=== PATIENT | female | born 1940 | race Caucasian/White ===

== ENCOUNTER 2019-09-30 04:10 | Inpatient (IN) | payer MEDICARE, OTHER ==
[2019-09-30] VITALS (17 sets, daily range): BP systolic 90–166; BP diastolic 41–78
[~2019-09-30] VITALS: Ht 165.1 cm; Wt 62.4 kg
[2019-09-30] MEDS ORDERED: dexamethasone sod phosphate 10mg/ml inj IV STA (04:13)
[2019-09-30] MEDS ORDERED: albuterol 2.5 MG/3 ML nebule CONTNEB PRN (04:15)
[2019-09-30] MEDS ORDERED: etomidate 2mg/ml inj. IV ONE (04:30)
[2019-09-30] MEDS ORDERED: rocuronium 10mg/ml inj IV ONE ×2 (04:30→08:00)
[2019-09-30] MEDS ORDERED: FENTANYL-0.9 % NACL/PF 100 ML IV PRN ×2 (04:33→05:51)
[2019-09-30] MEDS ORDERED: midazolam 100mg in NS 100ml 100 ML IV PRN ×2 (04:33→05:51)
[2019-09-30 05:20] LABS: ABG BASE EXCESS -7.6 mmol/L (-2.0-3.0); ABG HCO3 19.9 mmol/L (22.0-26.0); ABG OXYGEN SATURATION 98.5 % (95-98); ABG PH (T) 7.247 (7.350-7.450); ABG PO2 (T) 151.1 mmHg (83-108); FCOHb 0.6 % (0.5-1.5); FMetHb 0.2 % (0.3-1.12); FO2Hb 97.7 % (94-100); MINUTE VOLUME 6 L/min; PATIENT TEMPERATURE 35.7; PEEP 5 cm H2O; RESPIRATORY RATE 14 b/min; RESPIRATORY RATE (OBSERVED) 14 b/min; TIDAL VOLUME 400 mL; TOTAL HEMOGLOBIN 12.1 G/dl (12.0-16.0)
[2019-09-30 05:20] LABS: OXYGEN SATURATION (MIXED VEN) 84.8 % (60-80); PO2 MIXED VENOUS (TEMP COR) 52.4 mmHg (35-46)
[2019-09-30 05:22] LABS: BASOPHILS # (AUTO) 0.1 X10'3 (0-0.2); BASOPHILS % (AUTO) 0.8 % (0-1); EOSINOPHILS % (AUTO) 0.3 % (0-6); HEMATOCRIT 35.6 % (35.0-45.0); HEMOGLOBIN 11.4 g/dl (12.0-16.0); LYMPHOCYTES # (AUTO) 0.8 X10'3 (1.1-4.8); LYMPHOCYTES % (AUTO) 5.6 % (21-51); MEAN CORPUSCULAR HEMOGLOBIN 32.6 PG (27.0-31.0); MEAN CORPUSCULAR VOLUME 101.8 FL (78-98); MONOCYTES # (AUTO) 0.4 X10'3 (0-0.9); MONOCYTES % (AUTO) 2.9 % (2-12); NEUTROPHILS # (AUTO) 12.9 X10'3 (1.8-7.7); NEUTROPHILS % (AUTO) 90.4 % (42-75); PLATELET COUNT 193 X10'3 (140-440); RED CELL DISTRIBUTION WIDTH 20.3 % (11.5-14.5); WHITE BLOOD COUNT 14.2 X10'3 (4.5-11.0)
[2019-09-30] MEDS ORDERED: ATRIN INH ×2 (05:24)
[2019-09-30] MEDS ORDERED: LISI-600 PO (05:24)
[2019-09-30] MEDS ORDERED: LEVO200T8 PO (05:24)
[2019-09-30] MEDS ORDERED: LORA10TA65 PO (05:24)
[2019-09-30] MEDS ORDERED: OMEP40CA13 PO (05:24)
[2019-09-30] MEDS ORDERED: AMIO200T61 PO (05:24)
[2019-09-30] MEDS ORDERED: DOXE3TAB3 PO (05:24)
[2019-09-30] MEDS ORDERED: FLUT1AER INH (05:24)
[2019-09-30] MEDS ORDERED: ATOR20TA PO (05:24)
[2019-09-30] MEDS ORDERED: COU1T PO (05:24)
--- NOTE | 2019-09-30 05:25 | NUR ---
med list found in pts belongings - entered meds as written on list. some did not include dose or frequency
[2019-09-30 05:34] LABS: PARTIAL THROMBOPLASTIN TIME 28 SECONDS (22-32)
[2019-09-30 05:37] LABS: ALANINE AMINOTRANSFERASE 26 U/L (12-78); ALBUMIN 2.8 G/DL (3.4-5.0); ALBUMIN/GLOBULIN RATIO 1.1 (1.1-1.5); ALKALINE PHOSPHATASE 62 IU/L (46-116); ANION GAP 9 (8-16); ASPARTATE AMINO TRANSFERASE 30 U/L (10-37); BILIRUBIN,TOTAL 0.5 MG/DL (0.1-1.0); BLOOD UREA NITROGEN 57 MG/DL (7-18); BUN/CREATININE RATIO 8.4 (6.6-38.0); CALCIUM 8.1 MG/DL (8.5-10.1); CHLORIDE 106 MMOL/L (99-107); CREATININE 6.76 MG/DL (0.40-0.90); GLUCOSE 200 MG/DL (70-104); POTASSIUM 5.5 MMOL/L (3.5-5.1); SODIUM 140 MMOL/L (135-145); TOTAL CARBON DIOXIDE 25.2 MMOL/L (24-32); TOTAL PROTEIN 5.4 G/DL (6.4-8.2); eGFR 6 ML/MIN
[2019-09-30] MEDS ORDERED: glucagon, human recombinant 1mg kit SUBCUT PRN (05:55)
[2019-09-30] MEDS ORDERED: ondansetron/PF 4mg/2ml inj IV PRN (05:55)
[2019-09-30] MEDS ORDERED: methylPREDNISolone sod succ 125mg/2ml vial IV ONE (05:55)
[2019-09-30] MEDS ORDERED: MESSAGE TO PHARMACY PO ONE (05:55)
[2019-09-30] MEDS ORDERED: acetaminophen 650mg rectal suppository RC PRN (05:55)
[2019-09-30] MEDS ORDERED: insulin Lispro (HumaLOG) vial - multi-dose SQ SCH (05:55)
[2019-09-30] MEDS ORDERED: dextrose 50%-water 50ml dispensing syringe IV PRN ×2 (05:55)
[2019-09-30] MEDS ORDERED: acetaminophen 325mg tablet PO PRN ×2 (05:55)
[2019-09-30] MEDS ORDERED: dextrose ORAL solution 15 GM/59 ML bottle PO PRN ×2 (05:55)
[2019-09-30] MEDS ORDERED: albuterol 2.5 MG/3 ML nebule NEB PRN (05:55)
[2019-09-30 06:01] LABS: TOTAL CELLS COUNTED 100
[2019-09-30 06:02] LABS: ANISOCYTOSIS 3+; PLATELET ESTIMATE NORMAL; POIKILOCYTOSIS FEW; POLYCHROMASIA FEW
[2019-09-30] MEDS ORDERED: CefTRIAXone 2gm/D5W 50ml 50 ML IV ONE (06:05)
[2019-09-30] MEDS ORDERED: azithromycin/NS 500mg/250ml 250 ML IV ONE (06:05)
--- NOTE | 2019-09-30 06:20 | NUR ---
PATIENT RECEIVED ON BED VERSED MG/HR,FENTANYL 25MCG/HR.ON BEAR HUGGER TEMP SHARMA 95.7,FI02 40% RATE 16 PEEP 5.AWAITING ROOM ASIGNMENT.
--- NOTE | 2019-09-30 07:06 | NUR ---
Pt 8.0 tube was found at 22 cm. Previously charted at 24 cm
--- NOTE | 2019-09-30 07:07 | NUR ---
Pt 8.0 tube found at 22 cm. Previosul
--- NOTE | 2019-09-30 07:08 | NUR ---
Pt 8.0 tube found at 22 cm. Previously charted 24 cm at the teeth. No documentation for changes in tube placement. Addendum: 09/30/19 at 0709 by Luana Oviedo RT Amended: Links added.
[2019-09-30] MEDS: ipratropium/albuterol 3ml nebule NEB SCH ×4 (07:34→20:49)
[2019-09-30] MEDS: lisinopril 20mg tablet PO SCH (08:00)
[2019-09-30] MEDS: amiodarone 200mg tablet PO SCH ×2 (08:00→12:39)
[2019-09-30] MEDS ORDERED: sod chloride 0.9% 10ml flush syringe IV ONE (08:00)
[2019-09-30] MEDS ORDERED: epiNEPHrine 0.1mg/ml 10ml syringe ONE (08:00)
[2019-09-30] MEDS ORDERED: etomidate 2mg/ml inj. ONE (08:00)
[2019-09-30] MEDS: docusate sodium 100mg/10ml UD cup PO SCH ×2 (08:00→20:00)
[2019-09-30] MEDS: levoTHYROXINE 100mcg tablet PO SCH (08:00)
[2019-09-30] MEDS: pantoprazole 40 MG vial IV SCH (09:02)
[2019-09-30] MEDS ORDERED: heparin 1,000unit/ml 10ml vial 10 ML IV ONE (09:20)
[2019-09-30] MEDS ORDERED: normal saline 1000ml 250 ML IV PRN (09:20)
[2019-09-30] MEDS ORDERED: heparin 1,000 units/ml 10ml inj HE ONE ×2 (09:25)
--- NOTE | 2019-09-30 09:28 | NUR ---
Spoke with lab regarding ordered cultures. They state that they have received the UA, sputum, and one set of the blood cultures, and they said they would send someone up to get the other set
--- NOTE | 2019-09-30 11:52 | NUR ---
Initial: Pt intubated admit w/ fluid overload, COPD exacerbation, possible PNA, hx ESRD on HD. MAP 66 today. Per RN potentially pending extubation today. TF recs below in case prolonged intubation given needs on HD. Will continue to monitor. Rec: 1. IF TF; Vital AF @ 60ml/hr goal 2. advance diet upon extubation to renal per MD 3. wt per rx Addendum: 09/30/19 at [address] Amended: Links added.
--- NOTE | 2019-09-30 12:28 | NUR ---
Malnutrition consult: Pt has mild weakness, current bed scale wt 63kg w/ no prior admits, BLE +2 pitting edema. Pt also admit w/ fluid overload and hx ESRD on HD currently receiving HD. Pt has no visible signs of muscle/fat wasting on RD visit. At this time pt does not met minimum malnutrition criteria. Addendum: 09/30/19 at [address] Amended: Links added.
[2019-09-30] MEDS ORDERED: BENZ-49 PO (13:32)
[2019-09-30] MEDS: methylPREDNISolone sod succ 125mg/2ml vial IV SCH ×2 (15:30→20:21)
[2019-09-30] MEDS ORDERED: ipratropium/albuterol 3ml nebule NEB PRN (15:45)
[2019-09-30] MEDS ORDERED: racepinephrine 11.25mg/0.5ml nebule NEB PRN (15:45)
--- NOTE | 2019-09-30 17:50 | NUR ---
notified MD of hypotension. No new orders
--- NOTE | 2019-09-30 18:40 | NUR ---
Patient in room ICU 2040. I have received report from Neptali BELL, and had the opportunity to ask questions and assume patient care.
[2019-09-30] MEDS ORDERED: warfarin 1mg tablet PO ONE (21:00)
[2019-09-30] MEDS: insulin glargine (Lantus) pen - multi-dose SQ SCH (21:00)
[2019-09-30] MEDS: atorvastatin 20mg tablet PO SCH (21:25)
--- NOTE | 2019-09-30 22:45 | NUR ---
PT sleeping with no s/s of distress noted at this time. Bed is locked and low. Bilat soft wrist restraints in place and secure. Will continue to monitor. Addendum: 10/01/19 at 0600 by Gary Gray RN Restraints are not in place. Call light is within reach. Will continue to monitor.
[2019-10-01] VITALS (18 sets, daily range): BP systolic 106–142; BP diastolic 48–79
[2019-10-01] MEDS: methylPREDNISolone sod succ 125mg/2ml vial IV SCH ×2 (02:09→07:52)
--- NOTE | 2019-10-01 02:30 | NUR ---
PT resting with no s/s of distress noted at this time. Bed is locked and low. Call light is within reach. Will continue to monitor.
[2019-10-01 02:57] LABS: PARTIAL THROMBOPLASTIN TIME 28 SECONDS (22-32)
[2019-10-01 03:01] LABS: ALANINE AMINOTRANSFERASE 38 U/L (12-78); ALBUMIN 2.8 G/DL (3.4-5.0); ALBUMIN/GLOBULIN RATIO 1.1 (1.1-1.5); ALKALINE PHOSPHATASE 55 IU/L (46-116); ANION GAP 7 (8-16); ASPARTATE AMINO TRANSFERASE 24 U/L (10-37); BILIRUBIN,TOTAL 0.5 MG/DL (0.1-1.0); BLOOD UREA NITROGEN 26 MG/DL (7-18); BUN/CREATININE RATIO 6.9 (6.6-38.0); CALCIUM 8.2 MG/DL (8.5-10.1); CHLORIDE 103 MMOL/L (99-107); CREATININE 3.76 MG/DL (0.40-0.90); GLUCOSE 161 MG/DL (70-104); MAGNESIUM 1.9 MG/DL (1.5-2.4); PHOSPHORUS 3.2 MG/DL (2.3-4.5); POTASSIUM 4.6 MMOL/L (3.5-5.1); SODIUM 139 MMOL/L (135-145); TOTAL CARBON DIOXIDE 28.9 MMOL/L (24-32); TOTAL PROTEIN 5.3 G/DL (6.4-8.2); eGFR 12 ML/MIN
[2019-10-01 03:02] LABS: BASOPHILS % (AUTO) 0.3 % (0-1); EOSINOPHILS % (AUTO) 0 % (0-6); HEMATOCRIT 31.4 % (35.0-45.0); HEMOGLOBIN 10.5 g/dl (12.0-16.0); LYMPHOCYTES # (AUTO) 0.1 X10'3 (1.1-4.8); LYMPHOCYTES % (AUTO) 1.3 % (21-51); MEAN CORPUSCULAR HEMOGLOBIN 33.4 PG (27.0-31.0); MEAN CORPUSCULAR HGB CONC 33.3 g/dL (33.0-36.5); MEAN CORPUSCULAR VOLUME 100.3 FL (78-98); MEAN PLATELET VOLUME 7.8 FL (7.4-10.4); MONOCYTES # (AUTO) 0.2 X10'3 (0-0.9); MONOCYTES % (AUTO) 1.4 % (2-12); NEUTROPHILS # (AUTO) 10.5 X10'3 (1.8-7.7); PLATELET COUNT 169 X10'3 (140-440); RED BLOOD COUNT 3.13 X10'6 (4.20-5.60); RED CELL DISTRIBUTION WIDTH 19.7 % (11.5-14.5); WHITE BLOOD COUNT 10.8 X10'3 (4.5-11.0)
[2019-10-01] MEDS: ipratropium/albuterol 3ml nebule NEB SCH ×4 (03:09→21:57)
[2019-10-01 06:26] LABS: ANISOCYTOSIS 2+; PLATELET ESTIMATE NORMAL; POLYCHROMASIA FEW
[2019-10-01 06:27] LABS: SCHISTOCYTES FEW; TEAR DROP CELLS FEW
--- NOTE | 2019-10-01 06:36 | NUR ---
Problems reprioritized. Patient report given, questions answered & plan of care reviewed with Neptali BELL.
[2019-10-01] MEDS: levoTHYROXINE 100mcg tablet PO SCH (07:46)
[2019-10-01] MEDS: lisinopril 20mg tablet PO SCH (07:50)
[2019-10-01] MEDS: CefTRIAXone 2gm/D5W 50ml 50 ML IV SCH (07:51)
[2019-10-01] MEDS: pantoprazole 40 MG vial IV SCH (07:52)
[2019-10-01] MEDS ORDERED: mineral oil/petrolatum ophthal oint EACHEYE SCH (08:00)
[2019-10-01] MEDS: amiodarone 200mg tablet PO SCH (08:36)
[2019-10-01] MEDS: docusate sodium 100mg/10ml UD cup PO SCH ×2 (08:37→20:38)
[2019-10-01] MEDS: azithromycin/NS 500mg/250ml 250 ML IV SCH (09:20)
--- NOTE | 2019-10-01 12:42 | NUR ---
Patient in room ICU 2040. I have received report from ARABELLA ARMIJO and had the opportunity to ask questions and assume patient care.
[2019-10-01] MEDS: methylPREDNISolone sod succ/PF 40mg inj. IV SCH ×2 (13:55→20:33)
--- NOTE | 2019-10-01 13:58 | NUR ---
hayley sent home with daughter yesterday with patients permission.
--- NOTE | 2019-10-01 14:30 | NUR ---
received pt into room 313,assumed care,oriented to environment,pt calm,relaxed,denies pain
--- NOTE | 2019-10-01 18:38 | NUR ---
Problems reprioritized. Patient report given, questions answered & plan of care reviewed with tristan flores.
[2019-10-01] MEDS: lactobacillus rhamnosus 10,000 MMU CELLS/CAPSULE PO SCH (20:37)
[2019-10-01] MEDS: atorvastatin 20mg tablet PO SCH (20:38)
[2019-10-01] MEDS ORDERED: warfarin 5mg tablet PO ONE (21:00)
[2019-10-01] MEDS: insulin glargine (Lantus) pen - multi-dose SQ SCH (21:00)
[2019-10-01] MEDS ORDERED: benzonatate 100mg capsule PO PRN (23:40)
[2019-10-02] MEDS ORDERED: diphenhydrAMINE 25mg capsule PO PRN
[2019-10-02] MEDS: methylPREDNISolone sod succ/PF 40mg inj. IV SCH ×2 (02:16→07:49)
[2019-10-02 02:57] LABS: BASOPHILS # (AUTO) 0.1 X10'3 (0-0.2); BASOPHILS % (AUTO) 0.4 % (0-1); EOSINOPHILS % (AUTO) 0 % (0-6); HEMATOCRIT 30.4 % (35.0-45.0); HEMOGLOBIN 9.9 g/dl (12.0-16.0); LYMPHOCYTES # (AUTO) 0.1 X10'3 (1.1-4.8); LYMPHOCYTES % (AUTO) 0.9 % (21-51); MEAN CORPUSCULAR HEMOGLOBIN 32.9 PG (27.0-31.0); MEAN CORPUSCULAR HGB CONC 32.6 g/dL (33.0-36.5); MEAN CORPUSCULAR VOLUME 101.1 FL (78-98); MEAN PLATELET VOLUME 8.2 FL (7.4-10.4); MONOCYTES # (AUTO) 0.4 X10'3 (0-0.9); MONOCYTES % (AUTO) 2.2 % (2-12); NEUTROPHILS # (AUTO) 15.4 X10'3 (1.8-7.7); NEUTROPHILS % (AUTO) 96.5 % (42-75); PLATELET COUNT 173 X10'3 (140-440); RED BLOOD COUNT 3.01 X10'6 (4.20-5.60); RED CELL DISTRIBUTION WIDTH 19.9 % (11.5-14.5); WHITE BLOOD COUNT 15.9 X10'3 (4.5-11.0)
[2019-10-02 03:03] LABS: ALANINE AMINOTRANSFERASE 31 U/L (12-78); ALBUMIN 2.8 G/DL (3.4-5.0); ALBUMIN/GLOBULIN RATIO 1.1 (1.1-1.5); ALKALINE PHOSPHATASE 55 IU/L (46-116); ANION GAP 7 (8-16); ASPARTATE AMINO TRANSFERASE 18 U/L (10-37); BILIRUBIN,TOTAL 0.3 MG/DL (0.1-1.0); BLOOD UREA NITROGEN 47 MG/DL (7-18); BUN/CREATININE RATIO 8.7 (6.6-38.0); CHLORIDE 101 MMOL/L (99-107); GLUCOSE 140 MG/DL (70-104); PHOSPHORUS 4.8 MG/DL (2.3-4.5); POTASSIUM 4.5 MMOL/L (3.5-5.1); SODIUM 136 MMOL/L (135-145); TOTAL CARBON DIOXIDE 27.6 MMOL/L (24-32); TOTAL PROTEIN 5.4 G/DL (6.4-8.2); eGFR 8 ML/MIN
[2019-10-02] MEDS: ipratropium/albuterol 3ml nebule NEB SCH ×4 (04:16→21:20)
[2019-10-02 04:38] VITALS: BP 129/64
[2019-10-02 04:43] LABS: ANISOCYTOSIS 2+; PLATELET ESTIMATE NORMAL
[2019-10-02] MEDS ORDERED: lactulose 20gm/30ml cup PO PRN (05:55)
--- NOTE | 2019-10-02 05:59 | NUR ---
Problems reprioritized. Patient report given, questions answered & plan of care reviewed with Angélica BELL.
[2019-10-02 06:30] VITALS: BP 155/54
[2019-10-02] MEDS: amiodarone 200mg tablet PO SCH (07:48)
[2019-10-02] MEDS: lisinopril 20mg tablet PO SCH (07:48)
[2019-10-02] MEDS: levoTHYROXINE 100mcg tablet PO SCH (07:48)
[2019-10-02] MEDS: lactobacillus rhamnosus 10,000 MMU CELLS/CAPSULE PO SCH ×2 (07:49→20:04)
[2019-10-02] MEDS: docusate sodium 100mg/10ml UD cup PO SCH ×2 (07:49→20:00)
[2019-10-02] MEDS: CefTRIAXone 2gm/D5W 50ml 50 ML IV SCH (07:50)
[2019-10-02] MEDS ORDERED: potassium Cl 20 mEq SR tablet PO PRN ×2 (08:05)
[2019-10-02] MEDS ORDERED: potassium CL 10mEq/100ml bag 100 ML IV PRN ×2 (08:05)
[2019-10-02] MEDS: azithromycin/NS 500mg/250ml 250 ML IV SCH (08:52)
--- NOTE | 2019-10-02 09:58 | NUR ---
Dr. Pierre at bedside, states make sure she does P.T. Plan for 1-2 days for discharge.
--- NOTE | 2019-10-02 10:18 | NUR ---
reassessment: Pt extubated advanced to renal/mechanical soft diet PO increasing to 100% breakfast this AM up from 50% fluctuating average initially following extubation. LBM 09/28 w/ colace started receiving past 1 day so far. Will monitor for additional protein needs on HD pending further PO diet hx s/p recent extubation. Rec: 1. Continue renal/mechanical soft diet per MD 2. monitor for ONS needs pending further PO hx 3. wt per rx Addendum: 10/02/19 at [address] Amended: Links added.
[2019-10-02 11:00] VITALS: BP 145/73
[2019-10-02 15:00] VITALS: BP 131/70
[2019-10-02 15:19] LABS: HBSAG SCREEN Negative (Negative)
[2019-10-02 18:00] VITALS: BP 127/68
--- NOTE | 2019-10-02 18:35 | NUR ---
Problems reprioritized. Patient report given, questions answered & plan of care reviewed with Nidia BELL.
[2019-10-02] MEDS: atorvastatin 20mg tablet PO SCH (20:06)
[2019-10-02] MEDS ORDERED: warfarin 3mg tablet PO ONE (21:00)
[2019-10-02 22:00] VITALS: BP 157/52
[2019-10-03 02:00] VITALS: BP 124/61
[2019-10-03] MEDS: ipratropium/albuterol 3ml nebule NEB SCH ×3 (02:51→20:27)
[2019-10-03 03:05] LABS: BASOPHILS % (AUTO) 0.1 % (0-1); EOSINOPHILS % (AUTO) 0 % (0-6); HEMATOCRIT 31.5 % (35.0-45.0); HEMOGLOBIN 10.2 g/dl (12.0-16.0); LYMPHOCYTES # (AUTO) 0.3 X10'3 (1.1-4.8); LYMPHOCYTES % (AUTO) 2.5 % (21-51); MEAN CORPUSCULAR HEMOGLOBIN 32.8 PG (27.0-31.0); MEAN CORPUSCULAR HGB CONC 32.4 g/dL (33.0-36.5); MEAN CORPUSCULAR VOLUME 101.1 FL (78-98); MEAN PLATELET VOLUME 8.2 FL (7.4-10.4); MONOCYTES # (AUTO) 0.7 X10'3 (0-0.9); NEUTROPHILS # (AUTO) 12.1 X10'3 (1.8-7.7); NEUTROPHILS % (AUTO) 92.4 % (42-75); PLATELET COUNT 163 X10'3 (140-440); RED BLOOD COUNT 3.11 X10'6 (4.20-5.60); RED CELL DISTRIBUTION WIDTH 19.4 % (11.5-14.5); WHITE BLOOD COUNT 13.1 X10'3 (4.5-11.0)
[2019-10-03 03:08] LABS: ALANINE AMINOTRANSFERASE 27 U/L (12-78); ALBUMIN 2.9 G/DL (3.4-5.0); ALBUMIN/GLOBULIN RATIO 1.2 (1.1-1.5); ALKALINE PHOSPHATASE 57 IU/L (46-116); ANION GAP 11 (8-16); ASPARTATE AMINO TRANSFERASE 13 U/L (10-37); BILIRUBIN,TOTAL 0.4 MG/DL (0.1-1.0); BLOOD UREA NITROGEN 68 MG/DL (7-18); BUN/CREATININE RATIO 9.9 (6.6-38.0); CALCIUM 7.9 MG/DL (8.5-10.1); CHLORIDE 100 MMOL/L (99-107); CREATININE 6.87 MG/DL (0.40-0.90); GLUCOSE 103 MG/DL (70-104); PHOSPHORUS 5.7 MG/DL (2.3-4.5); POTASSIUM 4.7 MMOL/L (3.5-5.1); SODIUM 137 MMOL/L (135-145); TOTAL CARBON DIOXIDE 26.3 MMOL/L (24-32); TOTAL PROTEIN 5.4 G/DL (6.4-8.2); eGFR 6 ML/MIN
[2019-10-03 06:00] VITALS: BP 138/72
--- NOTE | 2019-10-03 06:05 | NUR ---
Patient in room MED 313. I have received report from ARABELLA Jacob and had the opportunity to ask questions and assume patient care.
[2019-10-03 07:50] LABS: ANISOCYTOSIS 2+; PLATELET ESTIMATE NORMAL
[2019-10-03 07:51] LABS: SPHEROCYTES FEW
[2019-10-03] MEDS ORDERED: heparin 1,000unit/ml 10ml vial 10 ML IV ONE (08:00)
[2019-10-03] MEDS ORDERED: normal saline 1000ml 250 ML IV PRN (08:00)
[2019-10-03] MEDS ORDERED: K and/or MAG REPLACEMENT MC SCH (08:00)
[2019-10-03] MEDS ORDERED: epoetin 20,000 units/ml inj IV ONE (08:00)
[2019-10-03] MEDS: docusate sodium 100mg/10ml UD cup PO SCH ×2 (08:00→21:23)
[2019-10-03] MEDS ORDERED: heparin 1,000 units/ml 10ml inj HE ONE ×2 (08:00)
[2019-10-03] MEDS: amiodarone 200mg tablet PO SCH (08:14)
[2019-10-03] MEDS: levoTHYROXINE 100mcg tablet PO SCH (08:14)
[2019-10-03] MEDS: prednisone 10mg tablet PO SCH (08:14)
[2019-10-03] MEDS: lactobacillus rhamnosus 10,000 MMU CELLS/CAPSULE PO SCH ×2 (08:14→21:23)
[2019-10-03] MEDS: CefTRIAXone 2gm/D5W 50ml 50 ML IV SCH (08:14)
[2019-10-03] MEDS: azithromycin 250mg tablet PO SCH (08:15)
[2019-10-03] MEDS: lisinopril 20mg tablet PO SCH (08:15)
[2019-10-03 11:00] VITALS: BP 159/90
--- NOTE | 2019-10-03 13:00 | NUR ---
Patients daughter has requested to talk with case management in regards to rehab placement. Paged Case Management and called Ena to relay this information. Patient is dangling on the side of the bed enjoying her lunch at this time. Will continue to monitor the patient.
[2019-10-03] MEDS ORDERED: WARF4TAB69 PO (14:25)
[2019-10-03] MEDS ORDERED: WARF3TAB56 PO (14:25)
[2019-10-03 15:00] VITALS: BP 167/88
--- NOTE | 2019-10-03 15:10 | NUR ---
Orientee documentation: I have reviewed and agree with all interventions, assessments performed and documented by Brittni BELL. Orientee Medication Administration: For this medication-pass time frame, all medication were reviewed, dispensed, administered and documented per hospital policy by Brittni BELL.
--- NOTE | 2019-10-03 15:22 | NUR ---
Dialysis nurse at bedside.
--- NOTE | 2019-10-03 17:45 | NUR ---
Left voicemail for Dr. Pierre: Requested that he call back regarding pt's elevated blood pressure.
[2019-10-03 18:00] VITALS: BP 182/106
--- NOTE | 2019-10-03 18:10 | NUR ---
received report from ARABELLA villalobos
--- NOTE | 2019-10-03 18:28 | NUR ---
Problems reprioritized. Patient report given, questions answered & plan of care reviewed with ARABELLA Luis.
--- NOTE | 2019-10-03 18:32 | NUR ---
Contacted Dr. Pierre re: elevated BP, states he wants NO blood pressure medications given for 186/107 r/t patient's fragile status. Orders for us to monitor. Dr. Holliday is on now.
[2019-10-03] MEDS ORDERED: warfarin 1mg tablet PO ONE (21:00)
[2019-10-03] MEDS: atorvastatin 20mg tablet PO SCH (21:23)
[2019-10-03 22:00] VITALS: BP 143/71
[2019-10-04 02:00] VITALS: BP 143/75
[2019-10-04] MEDS: ipratropium/albuterol 3ml nebule NEB SCH ×3 (02:42→15:24)
--- NOTE | 2019-10-04 02:59 | NUR ---
313 on tele 25, television antenna installer notified
[2019-10-04 06:00] VITALS: BP 141/68
--- NOTE | 2019-10-04 06:10 | NUR ---
Patient in room MED 313. I have received report from ARABELLA Luis and had the opportunity to ask questions and assume patient care.
[2019-10-04 06:17] LABS: BASOPHILS % (AUTO) 0.1 % (0-1); EOSINOPHILS % (AUTO) 0 % (0-6); HEMATOCRIT 31.8 % (35.0-45.0); HEMOGLOBIN 10.4 g/dl (12.0-16.0); LYMPHOCYTES # (AUTO) 0.7 X10'3 (1.1-4.8); MEAN CORPUSCULAR HGB CONC 32.7 g/dL (33.0-36.5); MEAN PLATELET VOLUME 8.1 FL (7.4-10.4); MONOCYTES # (AUTO) 0.6 X10'3 (0-0.9); MONOCYTES % (AUTO) 7.3 % (2-12); NEUTROPHILS # (AUTO) 6.6 X10'3 (1.8-7.7); NEUTROPHILS % (AUTO) 83.6 % (42-75); PLATELET COUNT 161 X10'3 (140-440); RED BLOOD COUNT 3.14 X10'6 (4.20-5.60); RED CELL DISTRIBUTION WIDTH 18.8 % (11.5-14.5); WHITE BLOOD COUNT 7.9 X10'3 (4.5-11.0)
--- NOTE | 2019-10-04 06:39 | NUR ---
gave report to ARABELLA Burton and ARABELLA Elkins "o"
--- NOTE | 2019-10-04 06:52 | NUR ---
Patient had dose of Heparin listed in the eMAR from 10/03/19. This medication was for dialysis. I non-administered, not something staff nurse will give or did give.
[2019-10-04 07:21] LABS: ANISOCYTOSIS 2+; PLATELET ESTIMATE NORMAL
[2019-10-04 07:22] LABS: ELLIPTOCYTES FEW; SCHISTOCYTES FEW; SPHEROCYTES FEW
[2019-10-04 07:25] LABS: ALANINE AMINOTRANSFERASE 38 U/L (12-78); ALBUMIN 2.9 G/DL (3.4-5.0); ALBUMIN/GLOBULIN RATIO 1.2 (1.1-1.5); ALKALINE PHOSPHATASE 59 IU/L (46-116); ANION GAP 9 (8-16); ASPARTATE AMINO TRANSFERASE 19 U/L (10-37); BILIRUBIN,TOTAL 0.4 MG/DL (0.1-1.0); BLOOD UREA NITROGEN 30 MG/DL (7-18); CHLORIDE 102 MMOL/L (99-107); CREATININE 3.77 MG/DL (0.40-0.90); GLUCOSE 80 MG/DL (70-104); MAGNESIUM 1.9 MG/DL (1.5-2.4); PHOSPHORUS 3.8 MG/DL (2.3-4.5); POTASSIUM 4.2 MMOL/L (3.5-5.1); SODIUM 138 MMOL/L (135-145); TOTAL CARBON DIOXIDE 27.2 MMOL/L (24-32); TOTAL PROTEIN 5.3 G/DL (6.4-8.2); eGFR 12 ML/MIN
[2019-10-04] MEDS: CefTRIAXone 2gm/D5W 50ml 50 ML IV SCH (08:05)
[2019-10-04] MEDS: levoTHYROXINE 100mcg tablet PO SCH (08:05)
[2019-10-04] MEDS: docusate sodium 100mg/10ml UD cup PO SCH (08:05)
[2019-10-04] MEDS: azithromycin 250mg tablet PO SCH (08:05)
[2019-10-04] MEDS: amiodarone 200mg tablet PO SCH (08:05)
[2019-10-04] MEDS: lactobacillus rhamnosus 10,000 MMU CELLS/CAPSULE PO SCH (08:05)
[2019-10-04] MEDS: lisinopril 20mg tablet PO SCH (08:05)
[2019-10-04] MEDS: prednisone 10mg tablet PO SCH (10:20)
[2019-10-04 11:00] VITALS: BP 121/59
[2019-10-04 15:00] VITALS: BP 133/80
--- NOTE | 2019-10-04 16:43 | NUR ---
Patient stable for transfer per MD orders. Called [facility] at 1645 to give report, left voicemail and call-back number at [phone]. Central line discontinued at 1620, cannula intact, clean, dry dressing in place. Pressure held for 5 minutes. No signs of bleeding or air embolus. phototypesetting equipment monitor removed. Patients medications retrieved from pharmacy and given to patient at 1600. All belongings collected, sent with [facility] [employer] personnel. Packet given to [facility] [employer] personnel, patient wheeled out of facility at 1635.
[2019-10-04] MEDS ORDERED: warfarin 3mg tablet PO ONE (21:00)
== END 2019-10-04 16:35 | DRG 871 ==
LOC: ER 04:11 → ED HOLD 05:51 → ICU 2S 06:58 → MED 3N 10-01 14:30
PROVIDERS: ATTEND Internal Medicine Critical Care Medicine
PROC: 5A1935Z Respiratory Ventilation, Less than 24 Consecutive Hours (ICD-10-PCS; principal; 2019-09-30)
PROC: 0BH17EZ Insertion of Endotracheal Airway into Trachea, Via Natural or Artificial Opening (ICD-10-PCS; 2019-09-30)
PROC: 0D9670Z Drainage of Stomach with Drainage Device, Via Natural or Artificial Opening (ICD-10-PCS; 2019-09-30)
PROC: 02HV33Z Insertion of Infusion Device into Superior Vena Cava, Percutaneous Approach (ICD-10-PCS; 2019-09-30)
PROC: B548ZZA Ultrasonography of Superior Vena Cava, Guidance (ICD-10-PCS; 2019-09-30)
PROC: 04HY32Z Insertion of Monitoring Device into Lower Artery, Percutaneous Approach (ICD-10-PCS; 2019-09-30)
PROC: 4A133B1 Monitoring of Arterial Pressure, Peripheral, Percutaneous Approach (ICD-10-PCS; 2019-09-30)
PROC: 4A133J1 Monitoring of Arterial Pulse, Peripheral, Percutaneous Approach (ICD-10-PCS; 2019-09-30)
PROC: 5A1D70Z Performance of Urinary Filtration, Intermittent, Less than 6 Hours Per Day (ICD-10-PCS; 2019-09-30)
PROC: 5A1D70Z Performance of Urinary Filtration, Intermittent, Less than 6 Hours Per Day (ICD-10-PCS; 2019-10-03)
DX: A41.9 Sepsis, unspecified organism (principal); N18.6 End stage renal disease; R65.21 Severe sepsis with septic shock; J96.21 Acute and chronic respiratory failure with hypoxia; J18.9 Pneumonia, unspecified organism; J44.0 Chronic obstructive pulmonary disease with (acute) lower respiratory infection; J44.1 Chronic obstructive pulmonary disease with (acute) exacerbation; I13.2 Hypertensive heart and chronic kidney disease with heart failure and with stage 5 chronic kidney disease, or end stage renal disease; I50.22 Chronic systolic (congestive) heart failure; E87.4 Mixed disorder of acid-base balance; Z60.2 Problems related to living alone; E03.9 Hypothyroidism, unspecified; E87.6 Hypokalemia; I48.91 Unspecified atrial fibrillation; Z99.2 Dependence on renal dialysis; Z79.899 Other long term (current) drug therapy
CPT/HCPCS: 36415; 36600; 71045; 80053; 82803; 82810; 82948; 83036; 83605; 83735; 83880; 84100; 84145; 84439; 84443; 84484; 85018; 85025; 85610; 85730; 87040; 87070; 87077; 87081; 87088; 87340; 92508; 92616; 93005; 93306; 94002; 94640; 94667; 94668; 94760; 96374; 97110; 97116; 97161; 97530; 99285; C9113; G0257; G0378; J0171; J0456; J0696; J1100; J1644; J1815; J2250; J2405; J2920; J2930; J3010; J7512; Q4081

== ENCOUNTER 2019-10-17 07:57 | Inpatient (IN) | payer MEDICARE, OTHER ==
[2019-10-17] VITALS (11 sets, daily range): BP systolic 111–162; BP diastolic 53–79
[~2019-10-17] VITALS: Ht 157.5 cm; Wt 61.2 kg
[~2019-10-17 07:57] MED LIST: AMIO200T61 PO; ATOR20TA PO; ATRIN INH; BENZ-49 PO; DOXE3TAB3 PO; FLUT1AER INH; LEVO200T8 PO; WARF3TAB56 PO; WARF4TAB69 PO
[2019-10-17] MEDS: pantoprazole 40 MG vial IV SCH (08:00)
[2019-10-17] MEDS ORDERED: warfarin 4mg tablet PO SCH ×3 (08:00→13:38)
[2019-10-17] MEDS: lisinopril 20mg tablet PO SCH (08:00)
[2019-10-17] MEDS: amiodarone 200mg tablet PO SCH (08:00)
[2019-10-17 08:35] LABS: ABG BASE EXCESS -6.4 mmol/L (-2.0-3.0); ABG HCO3 21.8 mmol/L (22.0-26.0); ABG OXYGEN SATURATION 98.4 % (95-98); ABG PCO2 (T) 53.4 mmHg (35.0-45.0); ABG PH (T) 7.225 (7.350-7.450); ABG PO2 (T) 150.6 mmHg (83-108); ALLEN'S TEST Positive; FCOHb 0.6 % (0.5-1.5); FMetHb 0.2 % (0.3-1.12); FO2Hb 97.6 % (94-100); MINUTE VOLUME 14 L/min; PATIENT TEMPERATURE 36.2; RESPIRATORY RATE 18 b/min; RESPIRATORY RATE (OBSERVED) 33 b/min; TIDAL VOLUME 379 mL; TOTAL HEMOGLOBIN 12.7 G/dl (12.0-16.0)
[2019-10-17] MEDS ORDERED: ipratropium/albuterol 3ml nebule NEB ONE (09:00)
[2019-10-17 09:39] LABS: BASOPHILS # (AUTO) 0.1 X10'3 (0-0.2); EOSINOPHILS % (AUTO) 0.3 % (0-6); HEMATOCRIT 37.1 % (35.0-45.0); LYMPHOCYTES # (AUTO) 0.4 X10'3 (1.1-4.8); LYMPHOCYTES % (AUTO) 2.8 % (21-51); MEAN CORPUSCULAR HEMOGLOBIN 33.3 PG (27.0-31.0); MEAN CORPUSCULAR HGB CONC 32.5 g/dL (33.0-36.5); MEAN CORPUSCULAR VOLUME 102.5 FL (78-98); MEAN PLATELET VOLUME 7.7 FL (7.4-10.4); MONOCYTES # (AUTO) 0.6 X10'3 (0-0.9); MONOCYTES % (AUTO) 4.8 % (2-12); NEUTROPHILS # (AUTO) 11.5 X10'3 (1.8-7.7); NEUTROPHILS % (AUTO) 91.1 % (42-75); PLATELET COUNT 237 X10'3 (140-440); RED BLOOD COUNT 3.62 X10'6 (4.20-5.60); RED CELL DISTRIBUTION WIDTH 21.1 % (11.5-14.5); WHITE BLOOD COUNT 12.6 X10'3 (4.5-11.0)
[2019-10-17 09:44] LABS: ALANINE AMINOTRANSFERASE 58 U/L (12-78); ALBUMIN 3.4 G/DL (3.4-5.0); ALBUMIN/GLOBULIN RATIO 1.3 (1.1-1.5); ALKALINE PHOSPHATASE 74 IU/L (46-116); ANION GAP 6 (8-16); ASPARTATE AMINO TRANSFERASE 50 U/L (10-37); BILIRUBIN,TOTAL 0.9 MG/DL (0.1-1.0); BLOOD UREA NITROGEN 54 MG/DL (7-18); BUN/CREATININE RATIO 8.1 (6.6-38.0); CALCIUM 8.5 MG/DL (8.5-10.1); CHLORIDE 100 MMOL/L (99-107); CREATININE 6.65 MG/DL (0.40-0.90); GLUCOSE 112 MG/DL (70-104); SODIUM 134 MMOL/L (135-145); TOTAL CARBON DIOXIDE 28.4 MMOL/L (24-32); TOTAL PROTEIN 6.1 G/DL (6.4-8.2); TROPONIN I 0.05 NG/ML (0.0-0.05); eGFR 6 ML/MIN
[2019-10-17 09:46] LABS: POTASSIUM 6.7 MMOL/L (3.5-5.1)
[2019-10-17] MEDS ORDERED: insulin regular, human 10 units/0.1 ml syringe IV ONE (10:05)
[2019-10-17] MEDS ORDERED: dextrose 50%-water 50ml dispensing syringe IV ONE ×2 (10:05→12:10)
[2019-10-17] MEDS ORDERED: levoFLOXACIN-Levaquin 250mg/D5 50 ML IV ONE (10:05)
[2019-10-17] MEDS ORDERED: vancomycin/NS 1 GM ADD-VANTAGE 250 ML IV ONE (10:05)
[2019-10-17 10:10] LABS: ANISOCYTOSIS 3+; PLATELET ESTIMATE NORMAL
[2019-10-17] MEDS ORDERED: sodium bicarbonate (8.4%) inj. 1 MEQ/ML ML IV ONE (10:20)
[2019-10-17] MEDS: sodium bicarbonate (0.9mEq/ml) 44.6 mEq/50ml syringe IV ONE ×2 (10:25→10:30)
[2019-10-17] MEDS: sodium polystyrene sulfonate 15gm/60ml oral suspension PO ONE ×3 (10:26→10:58)
[2019-10-17 10:53] LABS: PARTIAL THROMBOPLASTIN TIME 31 SECONDS (22-32)
[2019-10-17 11:01] LABS: MAGNESIUM 2.2 MG/DL (1.5-2.4)
[2019-10-17] MEDS ORDERED: metoclopramide 5 mg/ml inj IV PRN (11:45)
[2019-10-17] MEDS ORDERED: acetaminophen 325mg tablet PO PRN ×2 (11:45→11:50)
[2019-10-17] MEDS ORDERED: ondansetron/PF 4mg/2ml inj IV PRN (11:45)
[2019-10-17] MEDS ORDERED: ACET-2778 PO (11:47)
[2019-10-17] MEDS ORDERED: DOCU-148 PO (11:47)
[2019-10-17] MEDS ORDERED: LISI-600 PO (11:47)
[2019-10-17] MEDS ORDERED: IPRA3AMP9 IH (11:47)
[2019-10-17] MEDS ORDERED: GUAI400T77 PO (11:47)
[2019-10-17] MEDS ORDERED: benzonatate 100mg capsule PO PRN (11:50)
[2019-10-17] MEDS ORDERED: normal saline 1000ml 250 ML IV PRN (11:55)
[2019-10-17] MEDS ORDERED: albumin (human) 25% 100ml IV 100 ML IV PRN (11:55)
[2019-10-17] MEDS ORDERED: LIDOcaine 1% (10mg/ml) 2ml vial SQ ONE (11:55)
[2019-10-17] MEDS ORDERED: epoetin 20,000 units/ml inj IV ONE (11:55)
[2019-10-17] MEDS ORDERED: ipratropium 0.5 MG/2.5ML nebule IH SCH (12:00)
[2019-10-17] MEDS ORDERED: heparin 1,000 units/ml 10ml inj HE ONE ×2 (12:00)
--- NOTE | 2019-10-17 12:15 | NUR ---
Received report from GIFTY Sarabia RN.
[2019-10-17] MEDS ORDERED: warfarin 3mg tablet PO SCH (13:05)
[2019-10-17] MEDS ORDERED: glucagon, human recombinant 1mg kit SUBCUT PRN (16:35)
[2019-10-17] MEDS ORDERED: dextrose ORAL solution 15 GM/59 ML bottle PO PRN ×2 (16:35)
[2019-10-17] MEDS ORDERED: dextrose 50%-water 50ml dispensing syringe IV PRN ×2 (16:35)
--- NOTE | 2019-10-17 18:25 | NUR ---
HD run started.
--- NOTE | 2019-10-17 18:33 | NUR ---
Problems reprioritized. Patient report given, questions answered & plan of care reviewed with ARABELLA Watkins.
[2019-10-17] MEDS: budesonide 0.5mg/2ml UD nebule IH SCH (21:00)
[2019-10-17] MEDS: guaiFENesin ER 600mg tablet PO SCH (21:01)
[2019-10-17] MEDS: atorvastatin 20mg tablet PO SCH (21:01)
[2019-10-17] MEDS: docusate sod 100mg capsule PO SCH (21:01)
[2019-10-17] MEDS: heparin, porcine 5000 units/ml vial SQ SCH (21:01)
[2019-10-18] VITALS (17 sets, daily range): BP systolic 98–150; BP diastolic 46–85
[2019-10-18] MEDS: ipratropium/albuterol 3ml nebule IH PRN ×4 (00:37→19:33)
[2019-10-18] MEDS: VANCOMYCIN LEVEL IV SCH (03:00)
[2019-10-18 05:13] LABS: BASOPHILS % (AUTO) 0.4 % (0-1); EOSINOPHILS % (AUTO) 0.5 % (0-6); HEMATOCRIT 32.3 % (35.0-45.0); HEMOGLOBIN 10.7 g/dl (12.0-16.0); LYMPHOCYTES # (AUTO) 0.4 X10'3 (1.1-4.8); LYMPHOCYTES % (AUTO) 6.9 % (21-51); MEAN CORPUSCULAR HEMOGLOBIN 33.9 PG (27.0-31.0); MEAN CORPUSCULAR VOLUME 102.7 FL (78-98); MEAN PLATELET VOLUME 7.5 FL (7.4-10.4); MONOCYTES # (AUTO) 0.6 X10'3 (0-0.9); MONOCYTES % (AUTO) 9.2 % (2-12); NEUTROPHILS # (AUTO) 5.2 X10'3 (1.8-7.7); PLATELET COUNT 162 X10'3 (140-440); RED BLOOD COUNT 3.15 X10'6 (4.20-5.60); RED CELL DISTRIBUTION WIDTH 20.1 % (11.5-14.5); WHITE BLOOD COUNT 6.3 X10'3 (4.5-11.0)
[2019-10-18 05:32] LABS: ALANINE AMINOTRANSFERASE 41 U/L (12-78); ALBUMIN 2.8 G/DL (3.4-5.0); ALBUMIN/GLOBULIN RATIO 1.2 (1.1-1.5); ALKALINE PHOSPHATASE 61 IU/L (46-116); ANION GAP 9 (8-16); ASPARTATE AMINO TRANSFERASE 26 U/L (10-37); BILIRUBIN,TOTAL 0.9 MG/DL (0.1-1.0); BLOOD UREA NITROGEN 22 MG/DL (7-18); BUN/CREATININE RATIO 5.9 (6.6-38.0); CHLORIDE 103 MMOL/L (99-107); CREATININE 3.74 MG/DL (0.40-0.90); GLUCOSE 68 MG/DL (70-104); MAGNESIUM 1.9 MG/DL (1.5-2.4); PHOSPHORUS 4.5 MG/DL (2.3-4.5); POTASSIUM 4.9 MMOL/L (3.5-5.1); SODIUM 138 MMOL/L (135-145); TOTAL CARBON DIOXIDE 26.5 MMOL/L (24-32); TOTAL PROTEIN 5.2 G/DL (6.4-8.2); VANCOMYCIN,RANDOM 21.5 UG/ML; eGFR 12 ML/MIN
[2019-10-18] MEDS ORDERED: vancomycin/NS 1 GM ADD-VANTAGE 250 ML IV PRN (06:00)
--- NOTE | 2019-10-18 06:27 | NUR ---
Patient in room ICU 2044. I have received report from ARABELLA Watkins and had the opportunity to ask questions and assume patient care.
[2019-10-18 07:03] LABS: ANISOCYTOSIS 3+; PLATELET ESTIMATE NORMAL
[2019-10-18 07:04] LABS: POIKILOCYTOSIS FEW
[2019-10-18] MEDS ORDERED: warfarin 3mg tablet PO SCH ×2 (08:00→11:56)
[2019-10-18] MEDS ORDERED: budesonide 0.5mg/2ml UD nebule IH SCH (08:00)
[2019-10-18] MEDS: budesonide 0.5mg/2ml UD nebule IH SCH (08:23)
[2019-10-18] MEDS: pantoprazole 40 MG vial IV SCH (08:34)
[2019-10-18] MEDS: heparin, porcine 5000 units/ml vial SQ SCH ×2 (08:35→20:30)
[2019-10-18] MEDS: docusate sod 100mg capsule PO SCH ×2 (08:35→20:29)
[2019-10-18] MEDS: lisinopril 20mg tablet PO SCH (08:35)
[2019-10-18] MEDS: guaiFENesin ER 600mg tablet PO SCH ×2 (08:35→20:29)
[2019-10-18] MEDS: amiodarone 200mg tablet PO SCH (08:35)
[2019-10-18] MEDS: levoTHYROXINE 100mcg tablet PO SCH (08:36)
[2019-10-18] MEDS ORDERED: warfarin 4mg tablet PO SCH (13:30)
--- NOTE | 2019-10-18 14:26 | NUR ---
Patient in room ICU 2044. I have received report from ARABELLA Pichardo and had the opportunity to ask questions and assume patient care.
--- NOTE | 2019-10-18 14:50 | NUR ---
Pt arrived on unit
--- NOTE | 2019-10-18 18:31 | NUR ---
Problems reprioritized. Patient report given, questions answered & plan of care reviewed with ARABELLA Watkins.
--- NOTE | 2019-10-18 18:37 | NUR ---
Patient in room PCU 3026. I have received report from rn and had the opportunity to ask questions and assume patient care.
[2019-10-18] MEDS: lactobacillus rhamnosus 10,000 MMU CELLS/CAPSULE PO SCH (20:29)
[2019-10-18] MEDS: atorvastatin 20mg tablet PO SCH (20:29)
[2019-10-19 02:51] VITALS: BP 133/72
[2019-10-19] MEDS: VANCOMYCIN LEVEL IV SCH (02:59)
[2019-10-19 05:51] LABS: BASOPHILS % (AUTO) 0.8 % (0-1); HEMATOCRIT 32.6 % (35.0-45.0); HEMOGLOBIN 10.8 g/dl (12.0-16.0); LYMPHOCYTES # (AUTO) 0.5 X10'3 (1.1-4.8); LYMPHOCYTES % (AUTO) 11.1 % (21-51); MEAN CORPUSCULAR HEMOGLOBIN 33.7 PG (27.0-31.0); MEAN CORPUSCULAR VOLUME 102.4 FL (78-98); MEAN PLATELET VOLUME 7.8 FL (7.4-10.4); MONOCYTES # (AUTO) 0.6 X10'3 (0-0.9); MONOCYTES % (AUTO) 11.6 % (2-12); NEUTROPHILS # (AUTO) 3.7 X10'3 (1.8-7.7); NEUTROPHILS % (AUTO) 75.5 % (42-75); PLATELET COUNT 163 X10'3 (140-440); RED BLOOD COUNT 3.19 X10'6 (4.20-5.60); WHITE BLOOD COUNT 4.9 X10'3 (4.5-11.0)
[2019-10-19 06:00] VITALS: BP 144/78
[2019-10-19 06:13] LABS: ALANINE AMINOTRANSFERASE 39 U/L (12-78); ALBUMIN 2.9 G/DL (3.4-5.0); ALBUMIN/GLOBULIN RATIO 1.2 (1.1-1.5); ALKALINE PHOSPHATASE 56 IU/L (46-116); ANION GAP 10 (8-16); ASPARTATE AMINO TRANSFERASE 28 U/L (10-37); BLOOD UREA NITROGEN 34 MG/DL (7-18); BUN/CREATININE RATIO 6.1 (6.6-38.0); CALCIUM 7.7 MG/DL (8.5-10.1); CHLORIDE 100 MMOL/L (99-107); CREATININE 5.53 MG/DL (0.40-0.90); GLUCOSE 82 MG/DL (70-104); MAGNESIUM 2.1 MG/DL (1.5-2.4); PHOSPHORUS 5.8 MG/DL (2.3-4.5); POTASSIUM 4.7 MMOL/L (3.5-5.1); SODIUM 137 MMOL/L (135-145); TOTAL CARBON DIOXIDE 26.6 MMOL/L (24-32); TOTAL PROTEIN 5.3 G/DL (6.4-8.2); VANCOMYCIN,RANDOM 18.3 UG/ML; eGFR 7 ML/MIN
--- NOTE | 2019-10-19 06:37 | NUR ---
Patient in room PCU 3026. I have received report from ARABELLA Watkins and had the opportunity to ask questions and assume patient care. Patient currently resting in bed, bed locked and low, call light in reach, no acute distress, will continue to monitor.
[2019-10-19 07:38] LABS: ANISOCYTOSIS 2+; PLATELET ESTIMATE NORMAL
[2019-10-19] MEDS ORDERED: albumin (human) 25% 100ml IV 100 ML IV PRN (08:00)
[2019-10-19] MEDS: budesonide 0.5mg/2ml UD nebule IH SCH (08:00)
[2019-10-19] MEDS ORDERED: normal saline 1000ml 250 ML IV PRN (08:00)
[2019-10-19] MEDS ORDERED: heparin 1,000 units/ml 10ml inj HE ONE ×2 (08:00→16:55)
[2019-10-19] MEDS ORDERED: epoetin 20,000 units/ml inj IV ONE (08:00)
[2019-10-19] MEDS ORDERED: levoFLOXACIN-Levaquin 500mg/D5 100 ML IV SCH (08:00)
[2019-10-19] MEDS ORDERED: LIDOcaine 1% (10mg/ml) 2ml vial SQ ONE (08:00)
[2019-10-19] MEDS: guaiFENesin ER 600mg tablet PO SCH ×2 (08:11→20:59)
[2019-10-19] MEDS: lisinopril 20mg tablet PO SCH (08:11)
[2019-10-19] MEDS: lactobacillus rhamnosus 10,000 MMU CELLS/CAPSULE PO SCH ×2 (08:12→20:58)
[2019-10-19] MEDS: pantoprazole 40mg Tablet.DR PO SCH (08:12)
[2019-10-19] MEDS: amiodarone 200mg tablet PO SCH (08:12)
[2019-10-19] MEDS: levoTHYROXINE 100mcg tablet PO SCH (08:12)
[2019-10-19] MEDS: docusate sod 100mg capsule PO SCH ×2 (08:12→20:58)
[2019-10-19] MEDS: heparin, porcine 5000 units/ml vial SQ SCH ×2 (08:12→20:59)
[2019-10-19 11:00] VITALS: BP 128/67
[2019-10-19] MEDS ORDERED: lactulose 20gm/30ml cup PO PRN (11:45)
[2019-10-19 15:00] VITALS: BP 132/71
--- NOTE | 2019-10-19 18:21 | NUR ---
Problems reprioritized. Patient report given, questions answered & plan of care reviewed with ARABELLA Aguila.
--- NOTE | 2019-10-19 19:04 | NUR ---
Patient in room PCU 3026. I have received report from Mallory BELL and had the opportunity to ask questions and assume patient care. Bedside report completed.
[2019-10-19 19:19] VITALS: BP 154/84
[2019-10-19] MEDS: ipratropium/albuterol 3ml nebule IH PRN (19:52)
[2019-10-19] MEDS: atorvastatin 20mg tablet PO SCH (21:06)
[2019-10-19 22:00] VITALS: BP 115/49
[2019-10-20 02:58] VITALS: BP 104/64
[2019-10-20] MEDS: VANCOMYCIN LEVEL IV SCH (03:09)
[2019-10-20 05:37] LABS: BASOPHILS % (AUTO) 0.8 % (0-1); EOSINOPHILS % (AUTO) 0.6 % (0-6); HEMATOCRIT 32.8 % (35.0-45.0); HEMOGLOBIN 10.8 g/dl (12.0-16.0); LYMPHOCYTES # (AUTO) 0.4 X10'3 (1.1-4.8); LYMPHOCYTES % (AUTO) 9.8 % (21-51); MEAN CORPUSCULAR HGB CONC 33.1 g/dL (33.0-36.5); MEAN CORPUSCULAR VOLUME 102.7 FL (78-98); MEAN PLATELET VOLUME 8.1 FL (7.4-10.4); MONOCYTES # (AUTO) 0.6 X10'3 (0-0.9); NEUTROPHILS % (AUTO) 74.8 % (42-75); PLATELET COUNT 139 X10'3 (140-440); RED BLOOD COUNT 3.19 X10'6 (4.20-5.60); RED CELL DISTRIBUTION WIDTH 19.6 % (11.5-14.5); WHITE BLOOD COUNT 4.1 X10'3 (4.5-11.0)
[2019-10-20 05:49] LABS: ALBUMIN 2.8 G/DL (3.4-5.0); ANION GAP 8 (8-16); BILIRUBIN,TOTAL 0.9 MG/DL (0.1-1.0); BLOOD UREA NITROGEN 17 MG/DL (7-18); CALCIUM 7.7 MG/DL (8.5-10.1); CHLORIDE 101 MMOL/L (99-107); CREATININE 3.42 MG/DL (0.40-0.90); GLUCOSE 89 MG/DL (70-104); MAGNESIUM 1.9 MG/DL (1.5-2.4); PHOSPHORUS 3.6 MG/DL (2.3-4.5); SODIUM 137 MMOL/L (135-145); TOTAL CARBON DIOXIDE 28.3 MMOL/L (24-32); TOTAL PROTEIN 5.3 G/DL (6.4-8.2); eGFR 13 ML/MIN
[2019-10-20 05:50] LABS: ALANINE AMINOTRANSFERASE 35 U/L (12-78); ALBUMIN/GLOBULIN RATIO 1.1 (1.1-1.5); ALKALINE PHOSPHATASE 55 IU/L (46-116); ASPARTATE AMINO TRANSFERASE 18 U/L (10-37); VANCOMYCIN,RANDOM 13.9 UG/ML
[2019-10-20 06:00] VITALS: BP 130/62
--- NOTE | 2019-10-20 06:27 | NUR ---
Patient in room PCU 3026. I have received report from ARABELLA Aguila and had the opportunity to ask questions and assume patient care. Patient currently sleeping in bed, bed locked and low, call light in reach, will continue to monitor.
[2019-10-20] MEDS ORDERED: vancomycin/NS 1 GM ADD-VANTAGE 250 ML IV ONE (07:30)
[2019-10-20] MEDS: docusate sod 100mg capsule PO SCH ×2 (07:53→20:00)
[2019-10-20] MEDS: acetaminophen 325mg tablet PO PRN (07:53)
[2019-10-20] MEDS: amiodarone 200mg tablet PO SCH (07:53)
[2019-10-20] MEDS: lactobacillus rhamnosus 10,000 MMU CELLS/CAPSULE PO SCH ×2 (07:53→20:38)
[2019-10-20] MEDS: heparin, porcine 5000 units/ml vial SQ SCH (07:54)
[2019-10-20] MEDS: lisinopril 20mg tablet PO SCH (07:54)
[2019-10-20] MEDS: levoTHYROXINE 100mcg tablet PO SCH (07:54)
[2019-10-20] MEDS: guaiFENesin ER 600mg tablet PO SCH ×2 (07:54→20:38)
[2019-10-20] MEDS: pantoprazole 40mg Tablet.DR PO SCH (07:54)
[2019-10-20] MEDS: budesonide 0.5mg/2ml UD nebule IH SCH (08:00)
[2019-10-20 08:09] LABS: PLATELET ESTIMATE DECREASED
[2019-10-20 08:10] LABS: ANISOCYTOSIS 2+; SCHISTOCYTES FEW
--- NOTE | 2019-10-20 09:09 | NUR ---
spoke with Dr. Phillips as patient's IV is bad, he is opting to hold the vancomycin rather than having a new IV placed.
[2019-10-20 11:00] VITALS: BP 139/77
[2019-10-20] MEDS ORDERED: phytonadione inj. 5 MG in normal saline 100ml IV soln 99.5 ML IV ONE ×2 (11:20→13:35)
[2019-10-20 15:00] VITALS: BP 142/59
--- NOTE | 2019-10-20 18:17 | NUR ---
Problems reprioritized. Patient report given, questions answered & plan of care reviewed with ARABELLA Hong.
[2019-10-20 19:00] VITALS: BP 146/84
[2019-10-20] MEDS: ipratropium/albuterol 3ml nebule IH PRN (19:10)
[2019-10-20] MEDS: atorvastatin 20mg tablet PO SCH (20:38)
[2019-10-20] MEDS ORDERED: warfarin 3mg tablet PO SCH (21:00)
[2019-10-20] MEDS ORDERED: warfarin 1mg tablet PO ONE (21:00)
[2019-10-20 23:00] VITALS: BP 149/80
[2019-10-21] VITALS (7 sets, daily range): BP systolic 99–154; BP diastolic 50–82
--- NOTE | 2019-10-21 06:05 | NUR ---
Problems reprioritized. Patient report given, questions answered & plan of care reviewed with Zack BELL.
--- NOTE | 2019-10-21 06:08 | NUR ---
Patient in room PCU 3026. I have received report from ARABELLA Hong and had the opportunity to ask questions and assume patient care.
[2019-10-21 06:36] LABS: BASOPHILS % (AUTO) 1.1 % (0-1); EOSINOPHILS % (AUTO) 0.7 % (0-6); HEMATOCRIT 32.9 % (35.0-45.0); HEMOGLOBIN 10.9 g/dl (12.0-16.0); LYMPHOCYTES # (AUTO) 0.7 X10'3 (1.1-4.8); LYMPHOCYTES % (AUTO) 15.7 % (21-51); MEAN CORPUSCULAR HEMOGLOBIN 34.2 PG (27.0-31.0); MEAN CORPUSCULAR HGB CONC 33.2 g/dL (33.0-36.5); MEAN PLATELET VOLUME 8.2 FL (7.4-10.4); MONOCYTES # (AUTO) 0.6 X10'3 (0-0.9); NEUTROPHILS % (AUTO) 69.5 % (42-75); PLATELET COUNT 134 X10'3 (140-440); RED BLOOD COUNT 3.19 X10'6 (4.20-5.60); RED CELL DISTRIBUTION WIDTH 19.8 % (11.5-14.5); WHITE BLOOD COUNT 4.3 X10'3 (4.5-11.0)
[2019-10-21 06:45] LABS: ALANINE AMINOTRANSFERASE 30 U/L (12-78); ALBUMIN 2.8 G/DL (3.4-5.0); ALBUMIN/GLOBULIN RATIO 1.3 (1.1-1.5); ALKALINE PHOSPHATASE 52 IU/L (46-116); ANION GAP 6 (8-16); ASPARTATE AMINO TRANSFERASE 14 U/L (10-37); BILIRUBIN,TOTAL 1.1 MG/DL (0.1-1.0); BLOOD UREA NITROGEN 24 MG/DL (7-18); BUN/CREATININE RATIO 4.6 (6.6-38.0); CALCIUM 7.9 MG/DL (8.5-10.1); CHLORIDE 100 MMOL/L (99-107); GLUCOSE 70 MG/DL (70-104); PHOSPHORUS 4.5 MG/DL (2.3-4.5); SODIUM 135 MMOL/L (135-145); TOTAL CARBON DIOXIDE 28.9 MMOL/L (24-32); eGFR 8 ML/MIN
[2019-10-21] MEDS: guaiFENesin ER 600mg tablet PO SCH ×2 (07:41→21:39)
[2019-10-21] MEDS: lisinopril 20mg tablet PO SCH (07:42)
[2019-10-21] MEDS: amiodarone 200mg tablet PO SCH (07:42)
[2019-10-21] MEDS: lactobacillus rhamnosus 10,000 MMU CELLS/CAPSULE PO SCH ×2 (07:42→21:40)
[2019-10-21] MEDS: pantoprazole 40mg Tablet.DR PO SCH (07:42)
[2019-10-21] MEDS: docusate sod 100mg capsule PO SCH ×2 (07:42→20:00)
[2019-10-21] MEDS: levoTHYROXINE 100mcg tablet PO SCH (07:42)
[2019-10-21 07:48] LABS: ANISOCYTOSIS 2+; PLATELET ESTIMATE DECREASED; SCHISTOCYTES FEW
[2019-10-21 07:49] LABS: BURR CELLS FEW
[2019-10-21] MEDS ORDERED: albumin (human) 25% 100ml IV 100 ML IV PRN (08:00)
[2019-10-21] MEDS ORDERED: epoetin 20,000 units/ml inj IV ONE (08:00)
[2019-10-21] MEDS ORDERED: LIDOcaine 1% (10mg/ml) 2ml vial SQ ONE (08:00)
[2019-10-21] MEDS: budesonide 0.5mg/2ml UD nebule IH SCH (08:00)
[2019-10-21] MEDS ORDERED: heparin 1,000 units/ml 10ml inj HE ONE ×2 (08:00)
[2019-10-21] MEDS ORDERED: normal saline 1000ml 250 ML IV PRN (08:00)
[2019-10-21] MEDS ORDERED: normal saline 1000ml 100 ML IV PRN (08:00)
[2019-10-21] MEDS: acetaminophen 325mg tablet PO PRN (10:48)
[2019-10-21] MEDS ORDERED: levoFLOXACIN 500mg tablet PO SCH (11:00)
--- NOTE | 2019-10-21 18:03 | NUR ---
Problems reprioritized. Patient report given, questions answered & plan of care reviewed with ARABELLA Hong.
[2019-10-21] MEDS: ipratropium/albuterol 3ml nebule IH PRN (20:37)
[2019-10-21] MEDS ORDERED: warfarin 3mg tablet PO ONE (21:00)
[2019-10-21] MEDS: atorvastatin 20mg tablet PO SCH (21:40)
[2019-10-22 03:00] VITALS: BP_SYST 103; BP_SYST 99; BP_DIAS 50
[2019-10-22 06:00] VITALS: BP 137/64
--- NOTE | 2019-10-22 06:04 | NUR ---
Problems reprioritized. Patient report given, questions answered & plan of care reviewed with Zack BELL.
--- NOTE | 2019-10-22 06:24 | NUR ---
Patient in room PCU 3026. I have received report from ARABELLA Hong and had the opportunity to ask questions and assume patient care.
[2019-10-22 06:25] LABS: BASOPHILS % (AUTO) 0.8 % (0-1); EOSINOPHILS % (AUTO) 0.5 % (0-6); HEMATOCRIT 35.4 % (35.0-45.0); HEMOGLOBIN 11.6 g/dl (12.0-16.0); LYMPHOCYTES # (AUTO) 0.5 X10'3 (1.1-4.8); LYMPHOCYTES % (AUTO) 13.4 % (21-51); MEAN CORPUSCULAR HEMOGLOBIN 33.8 PG (27.0-31.0); MEAN CORPUSCULAR HGB CONC 32.9 g/dL (33.0-36.5); MEAN CORPUSCULAR VOLUME 102.8 FL (78-98); MEAN PLATELET VOLUME 8.3 FL (7.4-10.4); MONOCYTES # (AUTO) 0.5 X10'3 (0-0.9); MONOCYTES % (AUTO) 13.3 % (2-12); NEUTROPHILS # (AUTO) 2.6 X10'3 (1.8-7.7); PLATELET COUNT 138 X10'3 (140-440); RED BLOOD COUNT 3.44 X10'6 (4.20-5.60); RED CELL DISTRIBUTION WIDTH 19.2 % (11.5-14.5); WHITE BLOOD COUNT 3.6 X10'3 (4.5-11.0)
[2019-10-22 06:35] LABS: ALANINE AMINOTRANSFERASE 31 U/L (12-78); ALBUMIN 2.9 G/DL (3.4-5.0); ALBUMIN/GLOBULIN RATIO 1.2 (1.1-1.5); ALKALINE PHOSPHATASE 59 IU/L (46-116); ANION GAP 4 (8-16); ASPARTATE AMINO TRANSFERASE 15 U/L (10-37); BILIRUBIN,TOTAL 0.9 MG/DL (0.1-1.0); BLOOD UREA NITROGEN 12 MG/DL (7-18); BUN/CREATININE RATIO 3.5 (6.6-38.0); CALCIUM 8.1 MG/DL (8.5-10.1); CHLORIDE 101 MMOL/L (99-107); CREATININE 3.42 MG/DL (0.40-0.90); GLUCOSE 71 MG/DL (70-104); MAGNESIUM 1.8 MG/DL (1.5-2.4); PHOSPHORUS 2.9 MG/DL (2.3-4.5); POTASSIUM 3.5 MMOL/L (3.5-5.1); SODIUM 136 MMOL/L (135-145); TOTAL CARBON DIOXIDE 30.8 MMOL/L (24-32); TOTAL PROTEIN 5.3 G/DL (6.4-8.2); eGFR 13 ML/MIN
[2019-10-22] MEDS: lactobacillus rhamnosus 10,000 MMU CELLS/CAPSULE PO SCH (07:24)
[2019-10-22] MEDS: amiodarone 200mg tablet PO SCH (07:24)
[2019-10-22] MEDS: docusate sod 100mg capsule PO SCH (07:24)
[2019-10-22] MEDS: guaiFENesin ER 600mg tablet PO SCH (07:24)
[2019-10-22] MEDS: levoTHYROXINE 100mcg tablet PO SCH (07:24)
[2019-10-22] MEDS: lisinopril 20mg tablet PO SCH (07:25)
[2019-10-22] MEDS: pantoprazole 40mg Tablet.DR PO SCH (07:25)
[2019-10-22] MEDS: budesonide 0.5mg/2ml UD nebule IH SCH (07:30)
[2019-10-22 11:00] VITALS: BP 136/67
--- NOTE | 2019-10-22 13:08 | NUR ---
Initial: Pt admit with SOB and fluid overload with hx ESRD on HD. Pt s/p thoracentesis yesterday with 550 mL fluid removed. Pt currently on renal diet documented with 50-100% PO intake likely closely meeting nutrient needs, pending documentation of PO intake for today. Pt feels improved after thoracentesis per MD note. Likely PO intake will continue to improve. LBM 10/20. Pt receiving routine Colace. No nutrition diagnosis at this time. Will continue to follow and monitor need for nutrition intervention. Recommendations: 1) Continue renal diet 2) Monitor need for ONS/additional protein 3) Routine bowel care; monitor need for additional 4) Wt per rx Addendum: 10/22/19 at [address] Amended: Links added.
[2019-10-22 15:00] VITALS: BP 130/64
--- NOTE | 2019-10-22 15:09 | NUR ---
Report called to LEROY Celeste at [facility].
--- NOTE | 2019-10-22 16:11 | NUR ---
PAGER ID: [phone] MESSAGE: [id number] Dick Anderson: BP 175/84, do you want anything given for BP. (his home BP meds the last two days seem to have poor control over BP). The scan of the mesenteric was done but it is still awaiting the reading ARABELLA Dixon Ext [phone]
--- NOTE | 2019-10-22 17:21 | NUR ---
Picked up by [facility]. Stable per Yessy Mina for transfer to rehab to [facility]. PIV's taken out and tele returned.
[2019-10-22] MEDS ORDERED: warfarin 4mg tablet PO ONE (21:00)
== END 2019-10-22 17:05 | DRG 640 ==
LOC: ER 07:58 → ED HOLD 12:20 → ICU 2S 12:31 → PCU 3S 10-18 14:50
PROC: 5A09357 Assistance with Respiratory Ventilation, Less than 24 Consecutive Hours, Continuous Positive Airway Pressure (ICD-10-PCS; principal; 2019-10-17)
PROC: 5A1D70Z Performance of Urinary Filtration, Intermittent, Less than 6 Hours Per Day (ICD-10-PCS; 2019-10-17)
PROC: 5A09357 Assistance with Respiratory Ventilation, Less than 24 Consecutive Hours, Continuous Positive Airway Pressure (ICD-10-PCS; 2019-10-18)
PROC: 5A09357 Assistance with Respiratory Ventilation, Less than 24 Consecutive Hours, Continuous Positive Airway Pressure (ICD-10-PCS; 2019-10-19)
PROC: 5A1D70Z Performance of Urinary Filtration, Intermittent, Less than 6 Hours Per Day (ICD-10-PCS; 2019-10-19)
PROC: 0W9B3ZZ Drainage of Left Pleural Cavity, Percutaneous Approach (ICD-10-PCS; 2019-10-21)
PROC: 5A1D70Z Performance of Urinary Filtration, Intermittent, Less than 6 Hours Per Day (ICD-10-PCS; 2019-10-21)
DX: E87.70 Fluid overload, unspecified (principal); N18.6 End stage renal disease; J18.9 Pneumonia, unspecified organism; J96.01 Acute respiratory failure with hypoxia; J96.02 Acute respiratory failure with hypercapnia; J44.1 Chronic obstructive pulmonary disease with (acute) exacerbation; J44.0 Chronic obstructive pulmonary disease with (acute) lower respiratory infection; J91.8 Pleural effusion in other conditions classified elsewhere; E87.5 Hyperkalemia; E03.9 Hypothyroidism, unspecified; I48.91 Unspecified atrial fibrillation; Z99.2 Dependence on renal dialysis; Z99.81 Dependence on supplemental oxygen; Z79.899 Other long term (current) drug therapy
CPT/HCPCS: 32555; 36415; 36600; 71045; 76937; 80053; 80202; 82803; 82948; 83605; 83735; 84100; 84145; 84484; 85018; 85025; 85610; 85730; 87040; 93005; 94640; 94660; 94760; 96365; 96375; 99285; C9113; G0257; G0378; J1644; J1815; J1956; J3370; J3430; J7626; Q4081

== ENCOUNTER 2020-04-09 06:03 | Inpatient (IN) | payer MEDICARE, OTHER ==
[~2020-04-09] VITALS: Ht 157.5 cm; Wt 56.8 kg
[~2020-04-09 06:03] MED LIST changes: +ACET-2778 PO; +BISA10SU60 RC; +DOCU-148 PO; -DOXE3TAB3 PO; +IPRA3AMP9 IH; +LISI-600 PO; +LORA10TA7 PO; +MAGN24002 PO; +PRED10TA23 PO; +TEMA15CA5 PO; +VIT1TABL50 PO; -WARF3TAB56 PO
[2020-04-09] MEDS ORDERED: ipratropium/albuterol 3ml nebule NEB ONE (06:10)
[2020-04-09] MEDS ORDERED: methylPREDNISolone sod succ 125mg/2ml vial IV ONE (06:10)
[2020-04-09] MEDS ORDERED: furosemide 40mg/4ml inj IV ONE (06:10)
[2020-04-09 06:35] LABS: PARTIAL THROMBOPLASTIN TIME 43 SECONDS (22-32)
[2020-04-09 06:41] LABS: BASOPHILS # (AUTO) 0.1 X10'3 (0-0.2); BASOPHILS % (AUTO) 1.2 % (0-1); EOSINOPHILS # (AUTO) 0.2 X10'3 (0-0.9); EOSINOPHILS % (AUTO) 1.7 % (0-6); HEMATOCRIT 41.7 % (35.0-45.0); HEMOGLOBIN 13.4 g/dl (12.0-16.0); LYMPHOCYTES # (AUTO) 2.6 X10'3 (1.1-4.8); LYMPHOCYTES % (AUTO) 24.3 % (21-51); MEAN CORPUSCULAR HEMOGLOBIN 32.8 PG (27.0-31.0); MEAN CORPUSCULAR HGB CONC 32.1 g/dL (33.0-36.5); MEAN CORPUSCULAR VOLUME 102.1 FL (78-98); MEAN PLATELET VOLUME 8.5 FL (7.4-10.4); MONOCYTES # (AUTO) 0.7 X10'3 (0-0.9); MONOCYTES % (AUTO) 6.6 % (2-12); NEUTROPHILS # (AUTO) 7.2 X10'3 (1.8-7.7); NEUTROPHILS % (AUTO) 66.2 % (42-75); PLATELET COUNT 330 X10'3 (140-440); RED BLOOD COUNT 4.08 X10'6 (4.20-5.60); RED CELL DISTRIBUTION WIDTH 14.4 % (11.5-14.5); WHITE BLOOD COUNT 10.9 X10'3 (4.5-11.0)
[2020-04-09 06:47] LABS: ALANINE AMINOTRANSFERASE 27 U/L (12-78); ALBUMIN 3.2 G/DL (3.4-5.0); ALBUMIN/GLOBULIN RATIO 0.8 (1.1-1.5); ALKALINE PHOSPHATASE 85 IU/L (46-116); ANION GAP 10 (8-16); ASPARTATE AMINO TRANSFERASE 27 U/L (10-37); BILIRUBIN,TOTAL 0.4 MG/DL (0.1-1.0); BLOOD UREA NITROGEN 57 MG/DL (7-18); BUN/CREATININE RATIO 7.5 (6.6-38.0); C-REACTIVE PROTEIN 2.47 MG/DL (0.0-0.5); CALCIUM 9.1 MG/DL (8.5-10.1); CHLORIDE 100 MMOL/L (99-107); CREATININE 7.61 MG/DL (0.40-0.90); GLUCOSE 119 MG/DL (70-104); LACTATE DEHYDROGENASE 209 U/L (81-234); SODIUM 136 MMOL/L (135-145); TOTAL CARBON DIOXIDE 25.9 MMOL/L (24-32); TOTAL PROTEIN 7.3 G/DL (6.4-8.2); eGFR 5 ML/MIN
--- NOTE | 2020-04-09 06:50 | NUR ---
RT at bedside, states she is unable to perform breathing treatment at this time since Bipap is in place. CN made aware.
[2020-04-09 06:51] LABS: POTASSIUM 6.3 MMOL/L (3.5-5.1)
[2020-04-09] MEDS ORDERED: insulin regular, human U-100 3ml vial - multi-dose IV ONE (06:55)
[2020-04-09] MEDS ORDERED: dextrose 50%-water 50ml dispensing syringe IV ONE (06:55)
[2020-04-09] MEDS ORDERED: calcium gluconate inj. 2 GM in normal saline 100ml IV soln 100 ML IV ONE (06:55)
--- NOTE | 2020-04-09 07:06 | NUR ---
Call to pharmacy at this time for calcium gluconate and sodium bicarb, pharmacy to prepare and will be available in approximately 15-20 min.
[2020-04-09] MEDS ORDERED: sodium bicarbonate (8.4%) inj. 100 MEQ in dextrose 5%-water 1,000 ML IV ONE (07:15)
[2020-04-09] MEDS ORDERED: heparin 1,000unit/ml 10ml vial 10 ML IV ONE (07:19)
[2020-04-09] MEDS ORDERED: albumin (human) 25% 100ml IV 100 ML IV PRN (07:20)
[2020-04-09] MEDS ORDERED: heparin 1,000 units/ml 10ml inj IV ONE (07:20)
[2020-04-09] MEDS ORDERED: ondansetron/PF 4mg/2ml inj IV PRN (07:25)
[2020-04-09] MEDS ORDERED: bisacodyl 10mg suppository rectal RC PRN (07:25)
[2020-04-09] MEDS ORDERED: diphenhydrAMINE 25mg capsule PO PRN (07:25)
[2020-04-09] MEDS ORDERED: acetaminophen 325mg tablet PO PRN (07:25)
[2020-04-09] MEDS: sodium bicarbonate (0.9mEq/ml) 44.6 mEq/50ml syringe IV ONE ×2 (07:58→08:09)
[2020-04-09] MEDS: heparin, porcine 5000 units/ml vial SQ SCH ×2 (08:00→20:00)
[2020-04-09] MEDS ORDERED: HYDROcodone/acetaminophen 5mg/325mg tablet PO ONE (08:20)
[2020-04-09] MEDS: docusate sod 100mg capsule PO SCH ×2 (08:38→20:25)
[2020-04-09] MEDS ORDERED: WARF5TAB2 PO (09:06)
[2020-04-09] MEDS ORDERED: TRAM50TA2 PO (09:06)
[2020-04-09] MEDS ORDERED: WARF6TAB PO (09:06)
[2020-04-09] MEDS ORDERED: BENZ-16 PO (09:06)
--- NOTE | 2020-04-09 10:19 | NUR ---
Patient complains of being uncomfortable in bed. Padding placed under her sacrum and patient is pulled up higher in bed. She states that she feels more comfortable for now.
[2020-04-09] MEDS ORDERED: heparin 1,000 units/ml 10ml inj HE ONE ×3 (10:30→17:15)
[2020-04-09] MEDS ORDERED: ALBU2.5V12 NEB (10:53)
--- NOTE | 2020-04-09 11:23 | NUR ---
CALL TO DR VARGAS REGARDING BIPAP ORDER UP ON FLOOR. PER MD CONTINUE BIPAP UPON ADMISSION AND PROVIDE PATIENT WITH A SMALLER MASK. RT MADE AWARE.
[2020-04-09 11:42] VITALS: BP 174/100
[2020-04-09] MEDS ORDERED: BIOT5TAB PO (11:44)
[2020-04-09] MEDS ORDERED: VITA-268 PO (11:45)
[2020-04-09 12:55] VITALS: BP 118/73
[2020-04-09 15:00] VITALS: BP 107/66
[2020-04-09 16:45] VITALS: BP 132/89
[2020-04-09] MEDS: HYDROcodone/acetaminophen 5mg/325mg tablet PO PRN (16:53)
--- NOTE | 2020-04-09 17:05 | NUR ---
RT in pts room at this time. Pt changed from 40% FI02 to 3liters nasal cannula. P.O. on continuous setting which reads 97%. Will continue to monitor closely.
--- NOTE | 2020-04-09 18:36 | NUR ---
Problems reprioritized. Patient report given, questions answered & plan of care reviewed with ARABELLA Dorman.
[2020-04-09 19:00] VITALS: BP 123/63
[2020-04-09] MEDS: temazepam 15mg capsule PO PRN (20:25)
[2020-04-09 23:00] VITALS: BP 127/68
[2020-04-10 03:00] VITALS: BP 117/59
[2020-04-10 06:00] VITALS: BP 150/88
--- NOTE | 2020-04-10 06:00 | NUR ---
Received report from Lakia. Entire report consisted of the patient's first name.
[2020-04-10] MEDS ORDERED: ondansetron 4mg rapidly disintigrating tab PO PRN (06:20)
[2020-04-10] MEDS: docusate sod 100mg capsule PO SCH ×2 (07:48→20:00)
[2020-04-10] MEDS: heparin, porcine 5000 units/ml vial SQ SCH ×2 (08:00→20:00)
--- NOTE | 2020-04-10 08:21 | NUR ---
Patient in room U 3013. I have received report from Lakia BELL. Upon entering the patient's room the patient was sitting up on the side of the bed holding the Bipap mask up to her face. I asked the patient if I could help her put it on? The patient then said she was nauseated so asked her if she had an piv which she said no and on a quick examination of her arms did not locate one. Lakia BELL came into the room and said she would give PO zofran, at which time I asked about the patient's elevated BP and was told that it was a false BP. As the RN left the room to get the zofran I asked if we were going to finish report and was told that "that was report". I asked if she thought that was an appropriate report and Lakia BELL stated " that's all you need". I was concerned because I did not get code status, name, diagnosis, information about the Bipap or any additional report information except that she had PO zofran. I informed my CRN about the unsafe report and continued to do my chart check and closely monitor the patient.
[2020-04-10] MEDS ORDERED: ondansetron/PF 4mg/2ml inj IV PRN (09:30)
[2020-04-10 10:26] LABS: BASOPHILS % (AUTO) 0.3 % (0-1); EOSINOPHILS % (AUTO) 0 % (0-6); HEMATOCRIT 35.7 % (35.0-45.0); HEMOGLOBIN 11.5 g/dl (12.0-16.0); LYMPHOCYTES % (AUTO) 8.9 % (21-51); MEAN CORPUSCULAR HEMOGLOBIN 32.6 PG (27.0-31.0); MEAN CORPUSCULAR HGB CONC 32.1 g/dL (33.0-36.5); MEAN CORPUSCULAR VOLUME 101.4 FL (78-98); MEAN PLATELET VOLUME 8.3 FL (7.4-10.4); MONOCYTES # (AUTO) 0.9 X10'3 (0-0.9); MONOCYTES % (AUTO) 7.9 % (2-12); NEUTROPHILS # (AUTO) 9.1 X10'3 (1.8-7.7); NEUTROPHILS % (AUTO) 82.9 % (42-75); PLATELET COUNT 278 X10'3 (140-440); RED BLOOD COUNT 3.51 X10'6 (4.20-5.60); RED CELL DISTRIBUTION WIDTH 14.3 % (11.5-14.5)
[2020-04-10 10:38] LABS: ALBUMIN 3.1 G/DL (3.4-5.0); ANION GAP 8 (8-16); BLOOD UREA NITROGEN 42 MG/DL (7-18); BUN/CREATININE RATIO 7.7 (6.6-38.0); CALCIUM 8.6 MG/DL (8.5-10.1); CHLORIDE 101 MMOL/L (99-107); CREATININE 5.49 MG/DL (0.40-0.90); GLUCOSE 98 MG/DL (70-104); MAGNESIUM 2.1 MG/DL (1.5-2.4); PHOSPHORUS 6.6 MG/DL (2.3-4.5); SODIUM 138 MMOL/L (135-145); TOTAL CARBON DIOXIDE 28.8 MMOL/L (24-32); eGFR 7 ML/MIN
[2020-04-10 10:41] LABS: POTASSIUM 6.1 MMOL/L (3.5-5.1)
[2020-04-10] MEDS ORDERED: sodium polystyrene sulfonate 15gm/60ml oral suspension PO ONE (10:45)
[2020-04-10 11:00] VITALS: BP 121/61
[2020-04-10] MEDS ORDERED: ipratropium/albuterol 3ml nebule IH PRN (11:10)
[2020-04-10] MEDS: vitamin B comp w/Vit. C tab 1 TAB TABLET PO SCH (11:20)
[2020-04-10] MEDS: lisinopril 5mg tablet PO SCH (11:20)
[2020-04-10] MEDS ORDERED: albuterol 2.5 MG/3 ML nebule NEB PRN (11:40)
[2020-04-10] MEDS: budesonide 0.5mg/2ml UD nebule IH SCH ×2 (11:49→20:07)
[2020-04-10] MEDS: ipratropium 0.5 MG/2.5ML nebule NEB SCH (11:49)
[2020-04-10] MEDS: amiodarone 100mg tablet PO SCH (12:51)
[2020-04-10] MEDS: benzonatate 100mg capsule PO SCH ×2 (13:00→21:10)
[2020-04-10] MEDS ORDERED: normal saline 1000ml 100 ML IV PRN (13:00)
[2020-04-10] MEDS ORDERED: heparin 1,000 units/ml 10ml inj HE ONE ×2 (13:05)
[2020-04-10 15:00] VITALS: BP 136/69
[2020-04-10 18:00] VITALS: BP 119/48
--- NOTE | 2020-04-10 18:00 | NUR ---
Patient in room PCU 3013. I have received report from Nadira BELL and had the opportunity to ask questions and assume patient care.
--- NOTE | 2020-04-10 18:00 | NUR ---
Problems reprioritized. Patient report given, questions answered & plan of care reviewed with Kristine[].
--- NOTE | 2020-04-10 18:30 | NUR ---
Orientee documentation: I have reviewed and agree with interventions, assessments performed and documented by Tameka BELL. [facility]ee Medication Administration: For this medication-pass time frame, medication were reviewed, dispensed, administered and documented per hospital policy by Tameka BELL.
[2020-04-10] MEDS ORDERED: docusate sod 100mg capsule PO SCH (20:00)
[2020-04-10] MEDS: albuterol 2.5 MG/3 ML nebule NEB PRN (20:07)
[2020-04-10] MEDS: zolpidem 5mg tablet PO SCH (21:00)
[2020-04-10] MEDS: atorvastatin 20mg tablet PO SCH (21:10)
[2020-04-10 22:00] VITALS: BP 138/59
[2020-04-10] MEDS: temazepam 15mg capsule PO PRN (22:50)
[2020-04-11 02:00] VITALS: BP 101/50
[2020-04-11 02:05] LABS: BASOPHILS % (AUTO) 0.7 % (0-1); EOSINOPHILS % (AUTO) 0.8 % (0-6); HEMATOCRIT 28.2 % (35.0-45.0); HEMOGLOBIN 9.3 g/dl (12.0-16.0); LYMPHOCYTES # (AUTO) 1.1 X10'3 (1.1-4.8); MEAN CORPUSCULAR HEMOGLOBIN 33.2 PG (27.0-31.0); MEAN CORPUSCULAR HGB CONC 32.9 g/dL (33.0-36.5); MEAN PLATELET VOLUME 7.9 FL (7.4-10.4); MONOCYTES # (AUTO) 0.6 X10'3 (0-0.9); MONOCYTES % (AUTO) 10.9 % (2-12); NEUTROPHILS % (AUTO) 68.6 % (42-75); PLATELET COUNT 199 X10'3 (140-440); RED BLOOD COUNT 2.79 X10'6 (4.20-5.60); RED CELL DISTRIBUTION WIDTH 14.1 % (11.5-14.5); WHITE BLOOD COUNT 5.9 X10'3 (4.5-11.0)
[2020-04-11 02:22] LABS: ALBUMIN 2.7 G/DL (3.4-5.0); ANION GAP 2 (8-16); BLOOD UREA NITROGEN 20 MG/DL (7-18); BUN/CREATININE RATIO 5.5 (6.6-38.0); CALCIUM 8.3 MG/DL (8.5-10.1); CHLORIDE 105 MMOL/L (99-107); CREATININE 3.65 MG/DL (0.40-0.90); GLUCOSE 81 MG/DL (70-104); MAGNESIUM 1.9 MG/DL (1.5-2.4); PHOSPHORUS 4.3 MG/DL (2.3-4.5); POTASSIUM 4.4 MMOL/L (3.5-5.1); SODIUM 141 MMOL/L (135-145); TOTAL CARBON DIOXIDE 33.8 MMOL/L (24-32); eGFR 12 ML/MIN
[2020-04-11 06:00] VITALS: BP 152/78
--- NOTE | 2020-04-11 06:18 | NUR ---
Problems reprioritized. Patient report given, questions answered & plan of care reviewed with Mallory BELL.
--- NOTE | 2020-04-11 06:32 | NUR ---
Patient in room PCU 3013. I have received report from ARABELLA Carmona and had the opportunity to ask questions and assume patient care. Pt sleeping comfortably, wearing Bipap.
[2020-04-11] MEDS: amiodarone 100mg tablet PO SCH (07:39)
[2020-04-11] MEDS: levoTHYROXINE 100mcg tablet PO SCH (07:39)
[2020-04-11] MEDS: loratadine 10mg tablet PO SCH (07:39)
[2020-04-11] MEDS: docusate sod 100mg capsule PO SCH ×2 (07:39→21:00)
[2020-04-11] MEDS: lisinopril 5mg tablet PO SCH (07:40)
[2020-04-11] MEDS: vitamin B comp w/Vit. C tab 1 TAB TABLET PO SCH (07:40)
[2020-04-11] MEDS: benzonatate 100mg capsule PO SCH ×3 (07:40→21:00)
[2020-04-11] MEDS: heparin, porcine 5000 units/ml vial SQ SCH ×2 (08:00→20:00)
[2020-04-11] MEDS ORDERED: ALBUTEROL SULFATE NEB SCH (08:00)
[2020-04-11] MEDS ORDERED: non-formulary drug (Fluticasone/Vilanterol (Breo Ellipta 100-25 Mcg INH) 1 PUFF) INH SCH (08:00)
[2020-04-11] MEDS: ipratropium 0.5 MG/2.5ML nebule NEB SCH ×2 (09:45→19:59)
[2020-04-11] MEDS: budesonide 0.5mg/2ml UD nebule IH SCH ×2 (09:46→19:59)
[2020-04-11 11:00] VITALS: BP 161/83
[2020-04-11] MEDS: traMADol 50MG tablet PO PRN (12:10)
[2020-04-11 15:00] VITALS: BP 106/55
--- NOTE | 2020-04-11 17:30 | NUR ---
Student Medication Administration: For this medication-pass time frame, all medication were reviewed, dispensed, administered and documented per hospital policy by heike Lawrence.
--- NOTE | 2020-04-11 17:30 | NUR ---
Student documentation: I have reviewed and agree with all interventions, assessments performed and documented by Howard, skilled nursing case manager.
[2020-04-11 18:00] VITALS: BP 113/65
--- NOTE | 2020-04-11 18:14 | NUR ---
Problems reprioritized. Patient report given, questions answered & plan of care reviewed with ARABELLA Merida. Pt sitting up in bediside chair, eating dinner independently. All needs met at this time.
--- NOTE | 2020-04-11 18:16 | NUR ---
Patient in room PCU 3013. I have received report from Mallory BELL and had the opportunity to ask questions and assume patient care.
[2020-04-11] MEDS: albuterol 2.5 MG/3 ML nebule NEB PRN (19:59)
[2020-04-11] MEDS: zolpidem 5mg tablet PO SCH (21:00)
[2020-04-11] MEDS: atorvastatin 20mg tablet PO SCH (21:00)
[2020-04-11 22:00] VITALS: BP 111/50
[2020-04-11] MEDS: HYDROcodone/acetaminophen 5mg/325mg tablet PO PRN (22:47)
[2020-04-11] MEDS: temazepam 15mg capsule PO PRN (23:47)
[2020-04-12 02:00] VITALS: BP 108/49
[2020-04-12 06:00] VITALS: BP 153/82
--- NOTE | 2020-04-12 06:01 | NUR ---
Problems reprioritized. Patient report given, questions answered & plan of care reviewed with Mallory BELL.
--- NOTE | 2020-04-12 06:15 | NUR ---
Patient in room U 3013. I have received report from ARABELLA Merida and had the opportunity to ask questions and assume patient care. Patient sleeping comfortably.
[2020-04-12 06:16] LABS: BASOPHILS # (AUTO) 0.1 X10'3 (0-0.2); BASOPHILS % (AUTO) 1.1 % (0-1); EOSINOPHILS # (AUTO) 0.1 X10'3 (0-0.9); EOSINOPHILS % (AUTO) 1.8 % (0-6); HEMATOCRIT 27.5 % (35.0-45.0); HEMOGLOBIN 9.1 g/dl (12.0-16.0); LYMPHOCYTES % (AUTO) 21.9 % (21-51); MEAN CORPUSCULAR HEMOGLOBIN 33.2 PG (27.0-31.0); MEAN CORPUSCULAR VOLUME 100.8 FL (78-98); MONOCYTES # (AUTO) 0.5 X10'3 (0-0.9); MONOCYTES % (AUTO) 11.1 % (2-12); NEUTROPHILS # (AUTO) 3.1 X10'3 (1.8-7.7); NEUTROPHILS % (AUTO) 64.1 % (42-75); PLATELET COUNT 163 X10'3 (140-440); RED BLOOD COUNT 2.72 X10'6 (4.20-5.60); WHITE BLOOD COUNT 4.8 X10'3 (4.5-11.0)
[2020-04-12 06:24] LABS: ALBUMIN 2.3 G/DL (3.4-5.0); ANION GAP 3 (8-16); BLOOD UREA NITROGEN 40 MG/DL (7-18); BUN/CREATININE RATIO 7.1 (6.6-38.0); CALCIUM 7.8 MG/DL (8.5-10.1); CHLORIDE 104 MMOL/L (99-107); CREATININE 5.65 MG/DL (0.40-0.90); GLUCOSE 69 MG/DL (70-104); PHOSPHORUS 4.5 MG/DL (2.3-4.5); SODIUM 138 MMOL/L (135-145); TOTAL CARBON DIOXIDE 30.6 MMOL/L (24-32); eGFR 7 ML/MIN
[2020-04-12 06:28] LABS: POTASSIUM 4.5 MMOL/L (3.5-5.1)
[2020-04-12] MEDS ORDERED: heparin 1,000 units/ml 10ml inj IV ONE (06:50)
[2020-04-12] MEDS ORDERED: albumin (human) 25% 100ml IV 100 ML IV PRN (06:50)
[2020-04-12] MEDS ORDERED: epoetin 20,000 units/ml inj IV ONE (06:50)
[2020-04-12] MEDS ORDERED: heparin 1,000unit/ml 10ml vial 10 ML IV ONE (06:50)
[2020-04-12] MEDS ORDERED: heparin 1,000 units/ml 10ml inj HE ONE ×2 (06:55)
[2020-04-12] MEDS: loratadine 10mg tablet PO SCH (07:33)
[2020-04-12] MEDS: lisinopril 5mg tablet PO SCH (07:33)
[2020-04-12] MEDS: docusate sod 100mg capsule PO SCH (07:33)
[2020-04-12] MEDS: amiodarone 100mg tablet PO SCH (07:33)
[2020-04-12] MEDS: levoTHYROXINE 100mcg tablet PO SCH (07:33)
[2020-04-12] MEDS: benzonatate 100mg capsule PO SCH ×2 (07:34→13:07)
[2020-04-12] MEDS: vitamin B comp w/Vit. C tab 1 TAB TABLET PO SCH (07:34)
[2020-04-12] MEDS: heparin, porcine 5000 units/ml vial SQ SCH (08:00)
[2020-04-12] MEDS: ipratropium 0.5 MG/2.5ML nebule NEB SCH (08:48)
[2020-04-12] MEDS: budesonide 0.5mg/2ml UD nebule IH SCH (08:48)
--- NOTE | 2020-04-12 10:21 | NUR ---
Patient states both feet have tingle sensation Addendum: 04/12/20 at 1042 by Ena ARAIZA Amended: Links added.
[2020-04-12 11:00] VITALS: BP 114/37
[2020-04-12] MEDS: traMADol 50MG tablet PO PRN (13:06)
--- NOTE | 2020-04-12 17:00 | NUR ---
Patient stable for discharge, all instructions were given. Informed patient to go to dialysis at [facility] day after tomorrow, follow up with Coumadin clinic to watch INR levels, keep fluid restrictions to 1L/24hour and keep salt intake between 2/3G per 24 hours. Tele discontinued, telephone solicitor supervisor notified. PIV discontinued, cannula intact. No new medications were prescribed. All belongings were collected and sent with patient. Patient wheeled to lobby and assisted into daughter's personal vehicle.
--- NOTE | 2020-04-13 16:17 | NUR ---
Case Management DC follow up: spoke to pt daughter, Rachelle Camarillo, via telephone. S/P: SOB Reports for pt: "doing fine, at HD appt today". Denies: acute/worsening cp, SOB, resp distress, vertigo, syncope,weakness, blurry vision, N/V, NARANJO, emergent general pain, abd tenderness/distension, fever. Reports pt was coughing mucous, blowing her nose, but nothing emergent that pt daughter is aware of. Verbalizes understanding of s/s that warrant 9-11/ER visit for evaluation. Pt compliant w/aftercare instructions at this time. Verbalizes understanding of Rx and why prescribed, resumes current Rx/taking as ordered, no ase r/t polypharmacy. Acknowledges [facility] Needs met, questions answered at DC, no further questions at this time.
== END 2020-04-12 17:04 | disposition home or self-care (01) | DRG 189 ==
LOC: ER 06:04 → ED HOLD 07:30 → PCU 3S 11:25 → OBSVTOIN 04-10 14:03
PROVIDERS: ADMIT Internal Medicine Critical Care Medicine; ATTEND Internal Medicine Critical Care Medicine
PROC: 5A09457 Assistance with Respiratory Ventilation, 24-96 Consecutive Hours, Continuous Positive Airway Pressure (ICD-10-PCS; principal; 2020-04-09)
PROC: 5A1D70Z Performance of Urinary Filtration, Intermittent, Less than 6 Hours Per Day (ICD-10-PCS; 2020-04-09)
PROC: 30233K1 Transfusion of Nonautologous Frozen Plasma into Peripheral Vein, Percutaneous Approach (ICD-10-PCS; 2020-04-10)
PROC: 5A1D70Z Performance of Urinary Filtration, Intermittent, Less than 6 Hours Per Day (ICD-10-PCS; 2020-04-10)
PROC: 0W9B3ZX Drainage of Left Pleural Cavity, Percutaneous Approach, Diagnostic (ICD-10-PCS; 2020-04-11)
PROC: 0W993ZX Drainage of Right Pleural Cavity, Percutaneous Approach, Diagnostic (ICD-10-PCS; 2020-04-11)
PROC: 5A1D70Z Performance of Urinary Filtration, Intermittent, Less than 6 Hours Per Day (ICD-10-PCS; 2020-04-12)
DX: J96.01 Acute respiratory failure with hypoxia (principal); N18.6 End stage renal disease; I13.2 Hypertensive heart and chronic kidney disease with heart failure and with stage 5 chronic kidney disease, or end stage renal disease; J91.8 Pleural effusion in other conditions classified elsewhere; E87.70 Fluid overload, unspecified; E87.5 Hyperkalemia; R62.7 Adult failure to thrive; I48.91 Unspecified atrial fibrillation; Z20.828 Contact with and (suspected) exposure to other viral communicable diseases; I50.9 Heart failure, unspecified; J44.9 Chronic obstructive pulmonary disease, unspecified; Z85.3 Personal history of malignant neoplasm of breast; Z80.3 Family history of malignant neoplasm of breast; Z87.891 Personal history of nicotine dependence; Z99.2 Dependence on renal dialysis; Z68.22 Body mass index [BMI] 22.0-22.9, adult; Z88.5 Allergy status to narcotic agent; Z88.2 Allergy status to sulfonamides; Z88.8 Allergy status to other drugs, medicaments and biological substances; Z79.899 Other long term (current) drug therapy
CPT/HCPCS: 32555; 36415; 36430; 71045; 76937; 80048; 80053; 82948; 83605; 83615; 83735; 83880; 84100; 84132; 84145; 84484; 85025; 85610; 85730; 86140; 86885; 86900; 86901; 87040; 87081; 87635; 93005; 94640; 94660; 94760; 96365; 96367; 96375; 96376; 97110; 97116; 97530; 99291; G0378; J0610; J1644; J1815; J1940; J2405; J2930; J7626; P9059; Q4081

== ENCOUNTER 2021-07-02 12:53 | Inpatient (IN) | payer MEDICARE ==
[~2021-07-02] VITALS: Ht 157.5 cm; Wt 50.0 kg
[~2021-07-02 12:53] MED LIST changes: -ACET-2778 PO; +AMIO100T4 PO; -AMIO200T61 PO; -ATOR20TA PO; +ATOR20TA66 PO; +ATRIN IH; -ATRIN INH; -BENZ-49 PO; -BISA10SU60 RC; -DOCU-148 PO; +DOCU100C40 PO; +FURO20TA4 PO; -IPRA3AMP9 IH; +LEVO175T7 PO; -LEVO200T8 PO; -LISI-600 PO; +LISI10TA27 PO; -LORA10TA7 PO; -MAGN24002 PO; -PRED10TA23 PO; +PRED20TA PO; +TEMA15CA PO; -TEMA15CA5 PO; +TRAM50TA2 PO; -VIT1TABL50 PO; +WARF-55 PO; -WARF4TAB69 PO
[2021-07-02] MEDS ORDERED: CefTRIAXone 2gm/D5W 50ml BAG 50 ML IV ONE (14:25)
[2021-07-02] MEDS ORDERED: ipratropium/albuterol 3ml nebule NEB ONE (14:25)
[2021-07-02 14:34] LABS: BASOPHILS % (AUTO) 0.4 % (0-1); EOSINOPHILS % (AUTO) 0 % (0-6); HEMATOCRIT 45.6 % (35.0-45.0); HEMOGLOBIN 14.5 g/dl (12.0-16.0); LYMPHOCYTES # (AUTO) 0.3 X10'3 (1.1-4.8); LYMPHOCYTES % (AUTO) 4.2 % (21-51); MEAN CORPUSCULAR HEMOGLOBIN 33.6 PG (27.0-31.0); MEAN CORPUSCULAR HGB CONC 31.7 g/dL (33.0-36.5); MEAN PLATELET VOLUME 8.8 FL (7.4-10.4); MONOCYTES # (AUTO) 0.2 X10'3 (0-0.9); MONOCYTES % (AUTO) 3.5 % (2-12); NEUTROPHILS # (AUTO) 5.8 X10'3 (1.8-7.7); NEUTROPHILS % (AUTO) 91.9 % (42-75); PLATELET COUNT 241 X10'3 (140-440); RED CELL DISTRIBUTION WIDTH 15.2 % (11.5-14.5); WHITE BLOOD COUNT 6.3 X10'3 (4.5-11.0)
[2021-07-02 14:56] LABS: ALANINE AMINOTRANSFERASE 40 U/L (12-78); ALBUMIN/GLOBULIN RATIO 1.2 (1.1-1.5); ALKALINE PHOSPHATASE 92 IU/L (46-116); ANION GAP 19 (8-16); ASPARTATE AMINO TRANSFERASE 33 U/L (10-37); BILIRUBIN,TOTAL 0.5 MG/DL (0.1-1.0); BLOOD UREA NITROGEN 90 MG/DL (7-18); BUN/CREATININE RATIO 9.2 (6.6-38.0); CALCIUM 9.1 MG/DL (8.5-10.1); CHLORIDE 98 MMOL/L (99-107); CREATININE 9.75 MG/DL (0.40-0.90); GLUCOSE 76 MG/DL (70-104); SODIUM 137 MMOL/L (135-145); TOTAL CARBON DIOXIDE 19.7 MMOL/L (24-32); TOTAL PROTEIN 7.3 G/DL (6.4-8.2); eGFR 4 ML/MIN
[2021-07-02 15:16] LABS: POTASSIUM 7.4 MMOL/L (3.5-5.1)
[2021-07-02] MEDS ORDERED: furosemide 10 MG/1 ML 10ml inj IV ONE (15:20)
[2021-07-02] MEDS ORDERED: albuterol 2.5 MG/3 ML nebule CONTNEB PRN (15:30)
[2021-07-02] MEDS ORDERED: FURO-149 PO (15:38)
[2021-07-02] MEDS ORDERED: heparin 1,000unit/ml 10ml vial 10 ML IV ONE (16:00)
[2021-07-02] MEDS ORDERED: insulin regular, human 10 units/0.1 ml syringe SQ ONE (16:05)
[2021-07-02] MEDS ORDERED: LEVO200T8 PO (16:05)
[2021-07-02] MEDS ORDERED: heparin 1,000 units/ml 10ml inj HE ONE ×2 (16:05)
[2021-07-02] MEDS ORDERED: dextrose 50%-water 50ml dispensing syringe IV ONE (16:05)
[2021-07-02] MEDS ORDERED: LISI20TA28 PO (16:07)
[2021-07-02] MEDS ORDERED: TEMA15CA5 PO (16:07)
[2021-07-02] MEDS ORDERED: WARF7.5T48 PO (16:08)
[2021-07-02] MEDS ORDERED: traMADol 50MG tablet PO PRN (16:10)
[2021-07-02] MEDS ORDERED: sodium bicarbonate (8.4%) inj. 150 MEQ in dextrose 5%-water 1,000 ML IV SCH (16:10)
[2021-07-02] MEDS ORDERED: acetaminophen 325mg tablet PO PRN ×2 (16:15)
[2021-07-02] MEDS ORDERED: potassium Cl 20 mEq SR tablet PO PRN ×2 (16:15)
[2021-07-02] MEDS ORDERED: amiodarone 50MG/ML inj IV ONE (16:15)
[2021-07-02] MEDS ORDERED: magnesium 2GM in 50ml NS 50 ML IV PRN (16:15)
[2021-07-02] MEDS ORDERED: ondansetron/PF 4mg/2ml inj IV PRN (16:15)
[2021-07-02] MEDS ORDERED: albuterol 2.5 MG/3 ML nebule NEB PRN (16:15)
[2021-07-02] MEDS ORDERED: bisacodyl 10mg suppository rectal RC PRN (16:15)
[2021-07-02] MEDS ORDERED: magnesium 4gm in 100ml NS 100 ML IV PRN (16:15)
[2021-07-02] MEDS ORDERED: HYDROcodone/acetaminophen 10/325mg tab PO PRN (16:15)
[2021-07-02] MEDS ORDERED: potassium Cl 40MEQ/1/2NS 520ml 520 ML IV PRN ×2 (16:15)
[2021-07-02] MEDS ORDERED: HYDROcodone/acetaminophen 5mg/325mg tablet PO PRN (16:15)
[2021-07-02] MEDS ORDERED: amiodarone 150mg/dext, iso-os 100 ML IV ONE (16:30)
[2021-07-02 16:53] LABS: ABG HCO3 17.2 mmol/L (22.0-26.0); ABG OXYGEN SATURATION 98.1 % (94-97); ABG PCO2 (T) 47.2 mmHg (32.0-45.0); ALLEN'S TEST POSITIVE; FCOHb 0.7 % (0.0-3.9); FLOW 3 L/min; FMetHb 0.2 % (0.0-1.5); FO2Hb 97.2 % (94-97); TOTAL HEMOGLOBIN 14.2 G/dl (12.0-16.0)
--- NOTE | 2021-07-02 17:31 | NUR ---
Received report from ARABELLA Castro and awaiting patient arrival to room 3010
--- NOTE | 2021-07-02 17:50 | NUR ---
patient arrived to room 3010 from ED via gurney and used a slideboard to slide into bed. Vital signs are hr 84, RR 24, pain 3/10, and 99% on 4L NC. Bed locked and lowered, nonskid socks on, call light in reach, dialysis nurse at the bedside setting up for dialysis, and in no acute distress.
[2021-07-02 18:16] VITALS: BP 122/71
--- NOTE | 2021-07-02 18:22 | NUR ---
Problems reprioritized. Patient report given, questions answered & plan of care reviewed with ARABELLA Jane. Patient stable at transfer of care.
--- NOTE | 2021-07-02 18:30 | NUR ---
Patient in room PCU 3010. I have received report from ARABELLA Cruz and had the opportunity to ask questions and assume patient care.
[2021-07-02 19:56] LABS: ALBUMIN 3.4 G/DL (3.4-5.0); ANION GAP 14 (8-16); BLOOD UREA NITROGEN 46 MG/DL (7-18); BUN/CREATININE RATIO 8.2 (6.6-38.0); CALCIUM 7.9 MG/DL (8.5-10.1); CHLORIDE 103 MMOL/L (99-107); CREATININE 5.59 MG/DL (0.40-0.90); GLUCOSE 97 MG/DL (70-104); POTASSIUM 3.7 MMOL/L (3.5-5.1); SODIUM 143 MMOL/L (135-145); TOTAL CARBON DIOXIDE 26.5 MMOL/L (24-32); eGFR 7 ML/MIN
[2021-07-02] MEDS ORDERED: docusate sod 100mg capsule PO SCH (20:00)
[2021-07-02] MEDS: docusate sod 100mg capsule PO SCH (20:00)
[2021-07-02] MEDS ORDERED: K and/or MAG REPLACEMENT MC SCH (20:00)
[2021-07-02] MEDS: budesonide 0.5mg/2ml UD nebule IH SCH (20:34)
[2021-07-02] MEDS: ipratropium/albuterol 3ml nebule NEB PRN (20:34)
[2021-07-02] MEDS ORDERED: warfarin 7.5mg tablet PO ONE (21:00)
[2021-07-02] MEDS ORDERED: zolpidem 5mg tablet PO SCH (21:00)
[2021-07-02 22:00] VITALS: BP 131/68
[2021-07-03 01:53] LABS: BASOPHILS % (AUTO) 0.5 % (0-1); EOSINOPHILS % (AUTO) 0 % (0-6); HEMATOCRIT 39.5 % (35.0-45.0); LYMPHOCYTES # (AUTO) 0.5 X10'3 (1.1-4.8); LYMPHOCYTES % (AUTO) 6.1 % (21-51); MEAN CORPUSCULAR HEMOGLOBIN 33.8 PG (27.0-31.0); MEAN CORPUSCULAR VOLUME 102.5 FL (78-98); MEAN PLATELET VOLUME 8.3 FL (7.4-10.4); MONOCYTES # (AUTO) 0.8 X10'3 (0-0.9); MONOCYTES % (AUTO) 9.5 % (2-12); NEUTROPHILS # (AUTO) 6.8 X10'3 (1.8-7.7); NEUTROPHILS % (AUTO) 83.9 % (42-75); PLATELET COUNT 190 X10'3 (140-440); RED BLOOD COUNT 3.85 X10'6 (4.20-5.60); RED CELL DISTRIBUTION WIDTH 14.9 % (11.5-14.5); WHITE BLOOD COUNT 8.1 X10'3 (4.5-11.0)
[2021-07-03 02:00] VITALS: BP 109/66
[2021-07-03 02:02] LABS: ALBUMIN 3.2 G/DL (3.4-5.0); ANION GAP 11 (8-16); BLOOD UREA NITROGEN 30 MG/DL (7-18); BUN/CREATININE RATIO 6.2 (6.6-38.0); CHLORIDE 103 MMOL/L (99-107); CREATININE 4.83 MG/DL (0.40-0.90); GLUCOSE 95 MG/DL (70-104); PHOSPHORUS 4.9 MG/DL (2.3-4.5); POTASSIUM 4.2 MMOL/L (3.5-5.1); SODIUM 143 MMOL/L (135-145); TOTAL CARBON DIOXIDE 28.7 MMOL/L (24-32); eGFR 9 ML/MIN
[2021-07-03 06:00] VITALS: BP 107/88
--- NOTE | 2021-07-03 07:00 | NUR ---
Patient in room PCU 3010. I have received report from ARABLELA FREDERICK and had the opportunity to ask questions and assume patient care.
--- NOTE | 2021-07-03 07:25 | NUR ---
Problems reprioritized. Patient report given, questions answered & plan of care reviewed with ARABELLA Bush.
[2021-07-03] MEDS: ipratropium/albuterol 3ml nebule NEB PRN (07:35)
[2021-07-03] MEDS: budesonide 0.5mg/2ml UD nebule IH SCH (07:35)
[2021-07-03] MEDS ORDERED: atorvastatin 20mg tablet PO SCH (08:00)
[2021-07-03] MEDS ORDERED: levoTHYROXINE 100mcg tablet PO SCH (08:00)
[2021-07-03] MEDS ORDERED: CefTRIAXone/D5W-Rocephin 1gm 50 ML IV SCH (08:00)
[2021-07-03] MEDS ORDERED: amiodarone 100mg tablet PO SCH (08:00)
[2021-07-03] MEDS ORDERED: furosemide 40mg/4ml inj IV SCH (08:00)
[2021-07-03] MEDS: docusate sod 100mg capsule PO SCH (08:53)
[2021-07-03 09:34] LABS: ALBUMIN 3.1 G/DL (3.4-5.0); ANION GAP 12 (8-16); BLOOD UREA NITROGEN 37 MG/DL (7-18); BUN/CREATININE RATIO 6.6 (6.6-38.0); CALCIUM 8.2 MG/DL (8.5-10.1); CHLORIDE 101 MMOL/L (99-107); CREATININE 5.63 MG/DL (0.40-0.90); GLUCOSE 165 MG/DL (70-104); POTASSIUM 4.4 MMOL/L (3.5-5.1); SODIUM 140 MMOL/L (135-145); TOTAL CARBON DIOXIDE 27.4 MMOL/L (24-32); eGFR 7 ML/MIN
--- NOTE | 2021-07-03 10:45 | NUR ---
PT STABLE FOR DC PER MD. PIV REMOVED WITH TIP INTACT, TOLERATED WELL BY PT. DISCHARGE AND FOLLOW UP INSTRUCTIONS REVIEWED WITH PT. TIME GIVEN FOR QUESTIONS. PT TRANSFERRED TO PRIVATE VEHICLE BY STAFF. PT DC TO HOME.
== END 2021-07-03 10:45 | disposition home health service (06) | DRG 640 ==
LOC: ER 12:53 → ED HOLD 16:19 → PCU 3S 17:50
PROVIDERS: ADMIT Family Medicine; ATTEND Family Medicine
PROC: 5A1D70Z Performance of Urinary Filtration, Intermittent, Less than 6 Hours Per Day (ICD-10-PCS; principal; 2021-07-02)
DX: E87.5 Hyperkalemia (principal); N18.6 End stage renal disease; J96.20 Acute and chronic respiratory failure, unspecified whether with hypoxia or hypercapnia; I21.A1 Myocardial infarction type 2; I13.2 Hypertensive heart and chronic kidney disease with heart failure and with stage 5 chronic kidney disease, or end stage renal disease; J44.0 Chronic obstructive pulmonary disease with (acute) lower respiratory infection; I50.32 Chronic diastolic (congestive) heart failure; J98.11 Atelectasis; E87.2 Acidosis; Z20.822 Contact with and (suspected) exposure to COVID-19; R19.7 Diarrhea, unspecified; E03.9 Hypothyroidism, unspecified; I48.91 Unspecified atrial fibrillation; Z60.2 Problems related to living alone; Z79.01 Long term (current) use of anticoagulants; Z79.51 Long term (current) use of inhaled steroids; Z80.3 Family history of malignant neoplasm of breast; Z80.8 Family history of malignant neoplasm of other organs or systems; Z82.0 Family history of epilepsy and other diseases of the nervous system; Z85.118 Personal history of other malignant neoplasm of bronchus and lung; Z85.3 Personal history of malignant neoplasm of breast; Z87.891 Personal history of nicotine dependence; Z90.710 Acquired absence of both cervix and uterus; Z99.2 Dependence on renal dialysis; Z88.2 Allergy status to sulfonamides; Z88.5 Allergy status to narcotic agent; Z88.8 Allergy status to other drugs, medicaments and biological substances; Z79.899 Other long term (current) drug therapy
CPT/HCPCS: 36415; 36600; 71045; 80048; 80053; 82803; 83605; 83735; 83880; 84100; 84145; 84484; 85018; 85025; 85610; 87040; 87081; 87635; 93005; 94640; 94760; 96365; 99285; C9803; G0257; G0378; J0696; J1644; J1815; J1940; J7626

== ENCOUNTER 2022-06-03 10:43 | Inpatient (IN) | payer MEDICARE ==
[~2022-06-03] VITALS: Ht 157.5 cm; Wt 46.4 kg
[~2022-06-03 10:43] MED LIST changes: +FURO-149 PO; -FURO20TA4 PO; -LEVO175T7 PO; +LEVO200T8 PO; -LISI10TA27 PO; -PRED20TA PO; -TEMA15CA PO; +TEMA15CA5 PO; -WARF-55 PO; +WARF7.5T48 PO
[2022-06-03 11:17] LABS: BASOPHILS % (AUTO) 0.2 % (0-1); EOSINOPHILS % (AUTO) 0.1 % (0-6); HEMATOCRIT 37.6 % (35.0-45.0); HEMOGLOBIN 11.8 g/dl (12.0-16.0); LYMPHOCYTES # (AUTO) 0.2 X10'3 (1.1-4.8); LYMPHOCYTES % (AUTO) 5.5 % (21-51); MEAN CORPUSCULAR HEMOGLOBIN 32.9 PG (27.0-31.0); MEAN CORPUSCULAR HGB CONC 31.3 g/dL (33.0-36.5); MEAN CORPUSCULAR VOLUME 105.1 FL (78-98); MEAN PLATELET VOLUME 8.1 FL (7.4-10.4); MONOCYTES # (AUTO) 0.4 X10'3 (0-0.9); NEUTROPHILS # (AUTO) 3.6 X10'3 (1.8-7.7); NEUTROPHILS % (AUTO) 84.2 % (42-75); PLATELET COUNT 112 X10'3 (140-440); RED BLOOD COUNT 3.58 X10'6 (4.20-5.60); RED CELL DISTRIBUTION WIDTH 16.5 % (11.5-14.5); WHITE BLOOD COUNT 4.3 X10'3 (4.5-11.0)
[2022-06-03 11:32] LABS: ALANINE AMINOTRANSFERASE 33 U/L (12-78); ALBUMIN 3.4 G/DL (3.4-5.0); ALKALINE PHOSPHATASE 71 IU/L (46-116); ANION GAP 10 (8-16); ASPARTATE AMINO TRANSFERASE 44 U/L (10-37); BILIRUBIN,TOTAL 0.6 MG/DL (0.1-1.0); BLOOD UREA NITROGEN 32 MG/DL (7-18); BUN/CREATININE RATIO 8.3 (6.6-38.0); CALCIUM 8.4 MG/DL (8.5-10.1); CHLORIDE 101 MMOL/L (99-107); CREATININE 3.87 MG/DL (0.40-0.90); GLUCOSE 84 MG/DL (70-104); POTASSIUM 3.9 MMOL/L (3.5-5.1); SODIUM 138 MMOL/L (135-145); TOTAL PROTEIN 6.8 G/DL (6.4-8.2); eGFR 11 ML/MIN
[2022-06-03] MEDS ORDERED: furosemide 10 MG/1 ML 10ml inj IV ONE (15:05)
--- NOTE | 2022-06-03 15:50 | NUR ---
PER PTS DAUGHTER PT NO LONGER VOIDS SHE IS ON HD. LAST HD WAS YESTERDAY WITH 1.4L REMOVED. DAUGHTER STATED PT HAS HD LAST WEEK MWF AND AN EXTRA TX ON THURSDAY. NOTIFIED DR HOWELL SHE STATED TO HOLD LASIX
[2022-06-03] MEDS ORDERED: LISI20TA28 PO (16:06)
[2022-06-03] MEDS ORDERED: OXYGEN NASALCANN (16:06)
[2022-06-03] MEDS ORDERED: METO-395 PO (16:06)
[2022-06-03] MEDS ORDERED: WARF-55 PO (16:06)
[2022-06-03] MEDS ORDERED: LEVO175T7 PO (16:17)
[2022-06-03] MEDS ORDERED: ATRIN INH (16:19)
[2022-06-03] MEDS ORDERED: ondansetron/PF 4mg/2ml inj IV PRN (16:25)
[2022-06-03] MEDS ORDERED: potassium CL 10mEq/100ml bag 100 ML IV PRN (16:25)
[2022-06-03] MEDS ORDERED: morphine 2 MG/ML inj. syringe IV PRN (16:25)
[2022-06-03] MEDS ORDERED: HYDROcodone/acetaminophen 10/325mg tab PO PRN (16:25)
[2022-06-03] MEDS ORDERED: POTASSIUM BICARB 20meq eff tab 20 MEQ TABLET.EFF PO PRN ×2 (16:25)
[2022-06-03] MEDS ORDERED: magnesium hydroxide 30ml (MOM) UD suspension PO PRN (16:25)
[2022-06-03] MEDS ORDERED: HYDROcodone/acetaminophen 5mg/325mg tablet PO PRN (16:25)
[2022-06-03] MEDS ORDERED: magnesium 2GM in 50ml NS 50 ML IV PRN (16:25)
[2022-06-03] MEDS ORDERED: mag hydrox/Alum hydrox/simeth 30ml oral suspension PO PRN (16:25)
[2022-06-03] MEDS ORDERED: acetaminophen 325mg tablet PO PRN ×2 (16:25)
[2022-06-03] MEDS ORDERED: magnesium Cl slow-release 64mg tablet PO PRN (16:25)
[2022-06-03] MEDS ORDERED: magnesium 4gm in 100ml NS 100 ML IV PRN (16:25)
[2022-06-03] MEDS ORDERED: traMADol 50MG tablet PO PRN (16:40)
[2022-06-03] MEDS ORDERED: OXYGEN AIR DELIVERY SYSTEMS NASALCANN SCH (16:40)
[2022-06-03 16:48] LABS: MAGNESIUM 2.1 MG/DL (1.5-2.4)
[2022-06-03] MEDS ORDERED: ipratropium 0.5 MG/2.5ML nebule NEB SCH (17:00)
--- NOTE | 2022-06-03 17:09 | NUR ---
NOTIFIED DR GAO THAT PT IS AN HD PT AND DOES NOT VOID AND THE LASIX WAS HELD SHE STATES SHE IS AWARE
[2022-06-03] MEDS: docusate sod 100mg capsule PO SCH (20:00)
[2022-06-03] MEDS: K and/or MAG REPLACEMENT MC SCH (20:00)
--- NOTE | 2022-06-03 20:20 | NUR ---
Patient's daughter, Maris, called to inquire about the status/condition of patient.
[2022-06-03] MEDS: budesonide 0.5mg/2ml UD nebule IH SCH (20:41)
[2022-06-03] MEDS: ipratropium/albuterol 3ml nebule NEB SCH (20:41)
[2022-06-03] MEDS: methylPREDNISolone sod succ 125mg/2ml vial IV SCH (20:52)
[2022-06-03] MEDS: heparin, porcine 5000 units/ml vial SQ SCH (20:53)
--- NOTE | 2022-06-03 21:50 | NUR ---
Patient in room ORTHO 4006. I have received report from Magnolia BELL ED and had the opportunity to ask questions and assume patient care. Addendum: 06/04/22 at 0023 by Charisse Ivory RN Amended: Links added.
--- NOTE | 2022-06-03 22:00 | NUR ---
Pt. arrived on the floor via garney accompanied by the benefits technician. Pt. awake A&Ox 4 denies c/o pain , no SOB at this time. Isolation precaution maintained. Call light within reach and bed in low position. Addendum: 06/04/22 at 0028 by Charisse Ivory RN Amended: Links added.
[2022-06-03 22:10] VITALS: BP 123/71
[2022-06-04 02:00] VITALS: BP 115/59
[2022-06-04] MEDS: methylPREDNISolone sod succ 125mg/2ml vial IV SCH ×5 (02:31→20:01)
[2022-06-04] MEDS: ipratropium/albuterol 3ml nebule NEB SCH ×4 (02:45→19:41)
--- NOTE | 2022-06-04 06:20 | NUR ---
Problems reprioritized. Patient report given, questions answered & plan of care reviewed with Mathew BELL. Addendum: 06/04/22 at 0645 by Charisse Ivory RN Amended: Links added.
[2022-06-04 06:25] LABS: BASOPHILS % (AUTO) 0.2 % (0-1); EOSINOPHILS % (AUTO) 0 % (0-6); HEMATOCRIT 34.7 % (35.0-45.0); HEMOGLOBIN 11.2 g/dl (12.0-16.0); LYMPHOCYTES # (AUTO) 0.1 X10'3 (1.1-4.8); LYMPHOCYTES % (AUTO) 8.2 % (21-51); MEAN CORPUSCULAR HEMOGLOBIN 33.3 PG (27.0-31.0); MEAN CORPUSCULAR HGB CONC 32.3 g/dL (33.0-36.5); MEAN CORPUSCULAR VOLUME 102.9 FL (78-98); MEAN PLATELET VOLUME 8.6 FL (7.4-10.4); NEUTROPHILS # (AUTO) 1.4 X10'3 (1.8-7.7); NEUTROPHILS % (AUTO) 89.6 % (42-75); PLATELET COUNT 111 X10'3 (140-440); RED BLOOD COUNT 3.37 X10'6 (4.20-5.60); RED CELL DISTRIBUTION WIDTH 15.7 % (11.5-14.5); WHITE BLOOD COUNT 1.6 X10'3 (4.5-11.0)
[2022-06-04 06:39] LABS: ALANINE AMINOTRANSFERASE 25 U/L (12-78); ALBUMIN 2.9 G/DL (3.4-5.0); ALKALINE PHOSPHATASE 62 IU/L (46-116); ANION GAP 11 (8-16); ASPARTATE AMINO TRANSFERASE 33 U/L (10-37); BILIRUBIN,TOTAL 0.6 MG/DL (0.1-1.0); BLOOD UREA NITROGEN 48 MG/DL (7-18); BUN/CREATININE RATIO 9.6 (6.6-38.0); CALCIUM 7.6 MG/DL (8.5-10.1); CHLORIDE 102 MMOL/L (99-107); CREATININE 5.01 MG/DL (0.40-0.90); GLUCOSE 134 MG/DL (70-104); MAGNESIUM 2.3 MG/DL (1.5-2.4); POTASSIUM 4.2 MMOL/L (3.5-5.1); SODIUM 141 MMOL/L (135-145); TOTAL CARBON DIOXIDE 28.1 MMOL/L (24-32); TOTAL PROTEIN 5.8 G/DL (6.4-8.2); eGFR 8 ML/MIN
[2022-06-04 06:45] VITALS: BP 140/79
--- NOTE | 2022-06-04 07:52 | NUR ---
Noted pt with a low BMI for geriatric age of [age] however current documented wt is not scaled. Most recent scaled wt hx in EMR is 48.2 kg 03/07/21, pt likely chronically underweight for age. Pt denied wt loss or decreased appetite per malnutrition risk screen with RN this admit. No concerns for malnutrition at this time. Will continue to follow closely and monitor need for nutrition intervention pending trends in PO intake. Addendum: 06/04/22 at [address] Amended: Links added.
[2022-06-04] MEDS: budesonide 0.5mg/2ml UD nebule IH SCH ×2 (08:00→19:41)
[2022-06-04] MEDS ORDERED: temazepam 15mg capsule PO SCH (08:00)
[2022-06-04] MEDS ORDERED: albuterol 2.5 MG/3 ML nebule NEB SCH (08:00)
[2022-06-04 08:04] LABS: NUCLEATED RED BLOOD CELLS 1 /100WBC (0-0); PLATELET ESTIMATE DECREASED; TOTAL CELLS COUNTED 100
[2022-06-04] MEDS ORDERED: TBO-filgrastim 300 MCG/0.5 ML inj. SQ ONE (10:00)
[2022-06-04] MEDS ORDERED: albumin (human) 25% 100ml IV 100 ML IV PRN (10:00)
[2022-06-04] MEDS ORDERED: heparin 1,000 units/ml 10ml inj IV ONE (10:00)
[2022-06-04] MEDS ORDERED: EPOETIN ALFA-EPBX 20,000 UNIT/ML 1 ML MDV IV ONE (10:00)
[2022-06-04] MEDS ORDERED: heparin 1,000unit/ml 10ml vial 10 ML IV ONE (10:00)
[2022-06-04 10:10] VITALS: BP 45/79
[2022-06-04] MEDS ORDERED: heparin 1,000 units/ml 10ml inj HE ONE ×2 (10:35)
[2022-06-04] MEDS: furosemide 20 MG/2 ML vial IV SCH ×3 (11:03→20:00)
[2022-06-04] MEDS: K and/or MAG REPLACEMENT MC SCH ×2 (11:03→20:00)
[2022-06-04] MEDS: docusate sod 100mg capsule PO SCH ×2 (11:03→20:00)
[2022-06-04] MEDS: atorvastatin 20mg tablet PO SCH (11:04)
[2022-06-04] MEDS: levoTHYROXINE 175mcg tablet PO SCH (11:05)
[2022-06-04] MEDS: heparin, porcine 5000 units/ml vial SQ SCH (11:05)
[2022-06-04] MEDS: lisinopril 20mg tablet PO SCH (11:05)
[2022-06-04] MEDS: metoprolol succinate 25mg (24-HOUR) SR. Tablet PO SCH (11:08)
[2022-06-04 14:15] VITALS: BP 129/95
[2022-06-04 18:00] VITALS: BP 129/67
--- NOTE | 2022-06-04 18:10 | NUR ---
Patient in room ORTHO 4006. I have received report from Mathew BELL and had the opportunity to ask questions and assume patient care. Addendum: 06/04/22 at 1844 by Charisse Ivory RN Amended: Links added.
[2022-06-04 22:00] VITALS: BP 134/76
[2022-06-05] MEDS ORDERED: temazepam 15mg capsule PO SCH (00:32)
[2022-06-05] MEDS ORDERED: temazepam 15mg capsule PO ONE (00:35)
[2022-06-05] MEDS: methylPREDNISolone sod succ 125mg/2ml vial IV SCH ×2 (01:40→08:29)
[2022-06-05 02:00] VITALS: BP 156/74
[2022-06-05] MEDS: ipratropium/albuterol 3ml nebule NEB SCH ×2 (02:47→08:55)
[2022-06-05 06:00] VITALS: BP 134/68
--- NOTE | 2022-06-05 06:10 | NUR ---
Problems reprioritized. Patient report given, questions answered & plan of care reviewed with Rocio BELL. Addendum: 06/05/22 at 0636 by Charisse Ivory RN Amended: Links added.
--- NOTE | 2022-06-05 06:26 | NUR ---
Patient in room ORTHO 4006. I have received report from Charisse BELL and had the opportunity to ask questions and assume patient care.
[2022-06-05 07:13] LABS: BASOPHILS % (AUTO) 0.3 % (0-1); EOSINOPHILS % (AUTO) 0 % (0-6); HEMATOCRIT 32.3 % (35.0-45.0); HEMOGLOBIN 10.3 g/dl (12.0-16.0); LYMPHOCYTES # (AUTO) 0.1 X10'3 (1.1-4.8); LYMPHOCYTES % (AUTO) 0.9 % (21-51); MEAN CORPUSCULAR HEMOGLOBIN 32.9 PG (27.0-31.0); MEAN CORPUSCULAR VOLUME 102.8 FL (78-98); MONOCYTES # (AUTO) 0.6 X10'3 (0-0.9); MONOCYTES % (AUTO) 4.1 % (2-12); NEUTROPHILS # (AUTO) 12.8 X10'3 (1.8-7.7); NEUTROPHILS % (AUTO) 94.7 % (42-75); PLATELET COUNT 127 X10'3 (140-440); RED BLOOD COUNT 3.14 X10'6 (4.20-5.60); RED CELL DISTRIBUTION WIDTH 15.7 % (11.5-14.5); WHITE BLOOD COUNT 13.6 X10'3 (4.5-11.0)
[2022-06-05 07:33] LABS: ALANINE AMINOTRANSFERASE 20 U/L (12-78); ALBUMIN 3.2 G/DL (3.4-5.0); ALBUMIN/GLOBULIN RATIO 1.1 (1.1-1.5); ALKALINE PHOSPHATASE 59 IU/L (46-116); ANION GAP 10 (8-16); ASPARTATE AMINO TRANSFERASE 30 U/L (10-37); BILIRUBIN,TOTAL 0.6 MG/DL (0.1-1.0); BLOOD UREA NITROGEN 32 MG/DL (7-18); BUN/CREATININE RATIO 8.6 (6.6-38.0); CALCIUM 8.4 MG/DL (8.5-10.1); CHLORIDE 101 MMOL/L (99-107); CREATININE 3.74 MG/DL (0.40-0.90); GLUCOSE 164 MG/DL (70-104); MAGNESIUM 2.1 MG/DL (1.5-2.4); POTASSIUM 3.6 MMOL/L (3.5-5.1); SODIUM 140 MMOL/L (135-145); TOTAL PROTEIN 6.2 G/DL (6.4-8.2); eGFR 12 ML/MIN
--- NOTE | 2022-06-05 07:34 | NUR ---
PAGER ID: [phone] MESSAGE: Sia Bentley in [phone] - critical INR of 7.3 Rocio [phone]
[2022-06-05] MEDS: K and/or MAG REPLACEMENT MC SCH (08:00)
[2022-06-05] MEDS: levoTHYROXINE 175mcg tablet PO SCH (08:26)
[2022-06-05] MEDS: atorvastatin 20mg tablet PO SCH (08:26)
[2022-06-05] MEDS: metoprolol succinate 25mg (24-HOUR) SR. Tablet PO SCH (08:26)
[2022-06-05] MEDS: lisinopril 20mg tablet PO SCH (08:28)
[2022-06-05] MEDS: furosemide 20 MG/2 ML vial IV SCH (08:29)
[2022-06-05] MEDS: docusate sod 100mg capsule PO SCH (08:29)
[2022-06-05] MEDS: budesonide 0.5mg/2ml UD nebule IH SCH (08:55)
[2022-06-05 10:00] VITALS: BP 132/68
[2022-06-05] MEDS ORDERED: DEC4T PO (10:23)
--- NOTE | 2022-06-05 10:37 | NUR ---
PAGER ID: [phone] MESSAGE: Rocio Alen9 re Sia Bentley in [phone]. Is pt supposed to have thoracentesis before discharge or are we not doing it?
--- NOTE | 2022-06-05 13:16 | NUR ---
Explained all discharge and medication instructions to pt. Pt verbalized understanding. Piv d/c'd, tip intact. Escorted to private vehicle via wheelchair.
[2022-06-09] MEDS ORDERED: LEVO200T8 PO (08:05)
[2022-06-09] MEDS ORDERED: LEVO175T7 PO (13:07)
== END 2022-06-05 13:10 | disposition home health service (06) | DRG 177 ==
LOC: ER 10:49 → ED HOLD 16:29 → EDBEDREQTM 17:49 → ORTHO 4S 22:11
PROVIDERS: ADMIT Internal Medicine; ATTEND Internal Medicine
PROC: 5A1D70Z Performance of Urinary Filtration, Intermittent, Less than 6 Hours Per Day (ICD-10-PCS; principal; 2022-06-04)
DX: U07.1 COVID-19 (principal); N18.6 End stage renal disease; J96.11 Chronic respiratory failure with hypoxia; E03.9 Hypothyroidism, unspecified; I48.91 Unspecified atrial fibrillation; I50.9 Heart failure, unspecified; D69.6 Thrombocytopenia, unspecified; I11.0 Hypertensive heart disease with heart failure; Z60.2 Problems related to living alone; J44.9 Chronic obstructive pulmonary disease, unspecified; R79.1 Abnormal coagulation profile; Z78.9 Other specified health status; Z79.01 Long term (current) use of anticoagulants; Z79.899 Other long term (current) drug therapy; Z80.3 Family history of malignant neoplasm of breast; Z99.2 Dependence on renal dialysis; Z80.8 Family history of malignant neoplasm of other organs or systems; Z82.0 Family history of epilepsy and other diseases of the nervous system; Z85.3 Personal history of malignant neoplasm of breast; Z99.81 Dependence on supplemental oxygen; Z88.2 Allergy status to sulfonamides; Z88.5 Allergy status to narcotic agent; Z88.8 Allergy status to other drugs, medicaments and biological substances
CPT/HCPCS: 36415; 71045; 80053; 83735; 83880; 85007; 85025; 85610; 87081; 87502; 87503; 87635; 93306; 94640; 94760; 99285; A6402; C9803; G0257; G0378; J1442; J1644; J1940; J2930; J7030